=== PATIENT | male | born 1980 | race Caucasian/White ===

== ENCOUNTER 2020-06-23 01:57 | Inpatient (IN) | payer MEDICAID ==
[~2020-06-23] VITALS: Ht 182.9 cm; Wt 93.0 kg
[2020-06-23] VITALS (7 sets, daily range): BP systolic 121–143; BP diastolic 76–85
[2020-06-23] MEDS ORDERED: Vancomycin 1 GM in NS 275 ML IVPB ONE (02:15)
[2020-06-23] MEDS ORDERED: Morphine Sulfate 4mg/ml Inj (IV USE ONLY) IVP ONE (02:15)
--- NOTE | 2020-06-23 02:16 | Emergency Room Report ---
History of Present Illness General Chief Complaint: General Complaint Source: Patient Present Illness HPI 40-year-old male, homeless, here for evaluation for skin infections. Patient says that he frequently gets skin infections and admits to using methamphetamine. However over the past several days he has been experiencing worsening pain and drainage and redness of the skin around these areas of infection. The worst of the infection are on his chest and on his left hand. He is also been experiencing worsening pain and swelling of his left hand. Says "I feel sick" which he describes as generalized malaise. Denies fevers, chills, shortness of breath, palpitations, back pain, abdominal pain, nausea, vomiting, dysuria. Said he had 1 episode of diarrhea today. Denies IV drug use. 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 Past Medical History: No Stated History Review of Systems All Other Systems: negative except mentioned in HPI Physical Exam Vital Signs Date Time Temp Pulse Resp B/P (MAP) Pulse Ox O2 Delivery O2 Flow Rate FiO2 06/23/20 01:53 97.9 101 18 126/81 (96) 99 Room Air Sp02 EP Interpretation: reviewed, normal General Appearance: no apparent distress, GCS 15, non-toxic, other - Disheveled, foul-smelling Head: normocephalic, atraumatic Eyes: bilateral eye normal inspection, bilateral eye PERRL ENT: hearing grossly normal, normal pharynx, no angioedema, normal voice Neck: full range of motion, supple/symm/no masses Respiratory: chest non-tender, lungs clear, normal breath sounds, speaking full sentences Cardiovascular #1: regular rate, rhythm, no edema Cardiovascular #2: 2+ carotid (R), 2+ carotid (L), 2+ radial (R), 2+ radial (L), 2+ dorsalis pedis (R), 2+ dorsalis pedis (L) Gastrointestinal: normal bowel sounds, non tender, soft, non-distended, no guarding, no rebound Rectal: deferred Genitourinary: normal inspection, no CVA tenderness Musculoskeletal: back normal, normal range of motion, gait/station normal, other - Diffuse swelling of the left hand on the extensor surface of the left palm Neurologic: alert, motor strength/tone normal, oriented x3, sensory intact, responsive, speech normal Psychiatric: judgement/insight normal, memory normal, mood/affect normal, no suicidal/homicidal ideation Skin: other - Multiple open lesions of the extensor surface of the left hand and a very large 3 cm open sore on the right upper chest with approximately 4 cm of extensive warm painful erythema extending from the wound. Lymphatic: no adenopathy Medical Decision Making Diagnostic Impression: Primary Impression: Sepsis Additional Impressions: Cellulitis Drug abuse Homeless ER Course Laboratory Tests Test 06/23/20 02:20 White Blood Count 17.8 K/UL (4.8-10.8) H Red Blood Count 4.86 M/UL (4.70-6.10) Hemoglobin 15.8 G/DL (14.2-18.0) Hematocrit 44.9 % (42.0-52.0) Mean Corpuscular Volume 93 FL (80-99) Mean Corpuscular Hemoglobin 32.5 PG (27.0-31.0) H Mean Corpuscular Hemoglobin Concent 35.1 G/DL (32.0-36.0) Red Cell Distribution Width 12.4 % (11.6-14.8) Platelet Count 315 K/UL (150-450) Mean Platelet Volume 8.0 FL (6.5-10.1) Neutrophils (%) (Auto) 80.3 % (45.0-75.0) H Lymphocytes (%) (Auto) 10.2 % (20.0-45.0) L Monocytes (%) (Auto) 7.4 % (1.0-10.0) Eosinophils (%) (Auto) 1.5 % (0.0-3.0) Basophils (%) (Auto) 0.6 % (0.0-2.0) Sodium Level 133 MMOL/L (136-145) L Potassium Level 3.7 MMOL/L (3.5-5.1) Chloride Level 99 MMOL/L (98-107) Carbon Dioxide Level 27 MMOL/L (21-32) Anion Gap 7 mmol/L (5-15) Blood Urea Nitrogen 10 mg/dL (7-18) Creatinine 0.9 MG/DL (0.55-1.30) Estimated Glomerular Filtration Rate > 60 mL/min (>60) Glucose Level 117 MG/DL (74-106) H Lactic Acid Level 1.40 mmol/L (0.4-2.0) Calcium Level 8.5 MG/DL (8.5-10.1) Magnesium Level 2.0 MG/DL (1.8-2.4) Total Bilirubin 0.2 MG/DL (0.2-1.0) Aspartate Amino Transferase (AST) 17 U/L (15-37) Alanine Aminotransferase (ALT) 30 U/L (12-78) Alkaline Phosphatase 126 U/L (46-116) H Creatine Kinase MB 3.7 NG/ML (0.0-3.6) H Total Protein 7.4 G/DL (6.4-8.2) Albumin 3.5 G/DL (3.4-5.0) Globulin 3.9 g/dL Albumin/Globulin Ratio 0.9 (1.0-2.7) L Salicylates Level 2.5 ug/mL (2.8-20) L Acetaminophen Level < 2 MCG/ML (10-30) L Serum Alcohol < 3 mg/dL Chest x-ray: No infiltrate/effusion. Mediastinum within normal limits. No consolidation X-ray left hand: Soft tissue edema. No acute bony abnormalities. No osteomyelitis. No fracture or dislocation 40-year-old male, homeless, history of drug abuse, here with open skin lesions and cellulitis. Patient has cellulitis on physical examination worse in his r ight upper chest and left hand. He also had swelling diffusely of his left hand without any involvement of the digits. No worry at this time of flexor tenosynovitis. Patient normal range of motion of his fingers and his symptoms seem to be localized to the extensor surface of the left palm. X-ray was unremarkable. No evidence of cellulitis. Chest x-ray normal. CBC showed a l eukocytosis of 18,000. Patient was also tachycardic on arrival to the emergency department with heart rate of 101. He was given 1 L of IV normal saline with resolution of his tachycardia. Lactate negative. Patient was given vancomycin in the emergency department. Admitted to [facility]. Last Vital Signs Date Time Temp Pulse Resp B/P (MAP) Pulse Ox O2 Delivery O2 Flow Rate FiO2 06/23/20 01:53 97.9 101 18 126/81 (96) 99 Room Air Armen Espinosa M.D. Jun 23, 2020 02:16
[2020-06-23] MEDS ORDERED: HYDROmorphone 1mg/ml Carpuject ONE (02:38)
[2020-06-23 02:42] LABS: BASOPHILS % (AUTO) 0.6 % (0.0-2.0); EOSINOPHILS % (AUTO) 1.5 % (0.0-3.0); HEMATOCRIT 44.9 % (42.0-52.0); HEMOGLOBIN 15.8 G/DL (14.2-18.0); LYMPHOCYTES % (AUTO) 10.2 % (20.0-45.0); MEAN CORPUSCULAR VOLUME 93 FL (80-99); MONOCYTES % (AUTO) 7.4 % (1.0-10.0); NEUTROPHILS % (AUTO) 80.3 % (45.0-75.0); PLATELET COUNT 315 K/UL (150-450); RED BLOOD COUNT 4.86 M/UL (4.70-6.10); RED CELL DISTRIBUTION WIDTH 12.4 % (11.6-14.8); WHITE BLOOD COUNT 17.8 K/UL (4.8-10.8)
[2020-06-23] MEDS ORDERED: HYDROmorphone 1mg/ml Carpuject IVP ONE ×2 (02:45→04:15)
[2020-06-23 02:53] LABS: ANION GAP 7 mmol/L (5-15); BLOOD UREA NITROGEN 10 mg/dL (7-18); CALCIUM 8.5 MG/DL (8.5-10.1); CARBON DIOXIDE 27 MMOL/L (21-32); CHLORIDE 99 MMOL/L (98-107); CREATININE 0.9 MG/DL (0.55-1.30); POTASSIUM 3.7 MMOL/L (3.5-5.1); SODIUM 133 MMOL/L (136-145)
[2020-06-23 03:06] LABS: ALANINE AMINOTRANSFERASE 30 U/L (12-78); ALBUMIN 3.5 G/DL (3.4-5.0); ALBUMIN/GLOBULIN RATIO 0.9 (1.0-2.7); ALKALINE PHOSPHATASE 126 U/L (46-116); ASPARTATE AMINO TRANSFERASE 17 U/L (15-37); BILIRUBIN,TOTAL 0.2 MG/DL (0.2-1.0); CKMB 3.7 NG/ML (0.0-3.6)
--- NOTE | 2020-06-23 03:42 | Diagnostic Imaging Report ---
EXAM: XR Chest, 1 View CLINICAL HISTORY: COUGH TECHNIQUE: Frontal view of the chest. COMPARISON: No relevant prior studies available. FINDINGS: Lungs: Unremarkable. No consolidation. Pleural space: Unremarkable. No pneumothorax. Heart: Unremarkable. No cardiomegaly. Mediastinum: Unremarkable. Bones/joints: Unremarkable. IMPRESSION: No radiographic evidence of acute cardiopulmonary disease.
--- NOTE | 2020-06-23 03:45 | Diagnostic Imaging Report ---
EXAM: XR Left Hand Complete, 3 or More Views CLINICAL HISTORY: PAIN TECHNIQUE: Frontal, lateral and oblique views of the left hand. COMPARISON: No relevant prior studies available. FINDINGS: Bones/joints: No acute fracture. No dislocation. Soft tissues: There is soft tissue edema. No radiopaque foreign body. IMPRESSION: 1. No acute fracture. 2. Soft tissue edema.
[2020-06-23] MEDS: Vancomycin 1.25gm/250ml Premix IVPB SCH ×2 (08:23→16:32)
[2020-06-23] MEDS: Heparin 5000 units/ml inj SUBQ SCH ×2 (08:30→21:12)
--- NOTE | 2020-06-23 08:59 | History and Physical Report ---
DATE OF ADMISSION: 06/23/2020 CHIEF COMPLAINT: Neck abscess. HISTORY OF PRESENT ILLNESS: This is a 40-year-old male with no past medical history presented with complaints of two weeks of a small abscess on the upper sternum area. He denies any fevers or chills. No shortness of breath but his infection worsened. He is apparently homeless, has been unable to get any medical care until now. PAST MEDICAL HISTORY: None. PAST SURGICAL HISTORY: None. CURRENT MEDICATIONS: None. FAMILY HISTORY: None. SOCIAL HISTORY: The patient denies any tobacco, ethanol, or drugs. REVIEW OF SYSTEMS: Unremarkable. PHYSICAL EXAMINATION: VITAL SIGNS: Temperature 98, pulse 89, respirations 18, and blood pressure 143/104. There is a 5 cm area of induration and redness on the upper sternum area. LABORATORY DATA: White count was 17,000. ASSESSMENT: This is a 40-year-old male admitted with complaints of cellulitis versus an abscess on the upper sternum. PLAN: CT scan of the neck/chest, IV antibiotics, followup cultures. The patient may need an I and D. Dino Rivero M.D. DR: Joel JOB#: [id number] CC:
[2020-06-23] MEDS: HYDROcodone/Acetamin 10/325 tab ORAL PRN (21:13)
[2020-06-24] VITALS: BP 132/79
[2020-06-24] MEDS: Vancomycin 1.25gm/250ml Premix IVPB SCH ×4 (00:26→23:01)
[2020-06-24 04:00] VITALS: BP 128/74
[2020-06-24 08:00] VITALS: BP 144/78
[2020-06-24] MEDS: Heparin 5000 units/ml inj SUBQ SCH ×2 (08:46→20:59)
--- NOTE | 2020-06-24 11:34 | General Progress Note ---
Subjective ROS Limited/Unobtainable: No Constitutional: Reports: no symptoms HEENT: Reports: no symptoms Cardiovascular: Reports: no symptoms Respiratory: Reports: no symptoms Gastrointestinal/Abdominal: Reports: no symptoms Genitourinary: Reports: no symptoms Neurologic/Psychiatric: Reports: no symptoms Endocrine: Reports: no symptoms Hematologic/Lymphatic: Reports: no symptoms Allergies: Coded Allergies: No Known Allergies (Unverified , 06/23/20) All Systems: reviewed and negative except above Subjective no new complaints. on iv abx. ct not done yet Objective Last 24 Hour Vital Signs Date Time Temp Pulse Resp B/P (MAP) Pulse Ox O2 Delivery O2 Flow Rate FiO2 06/24/20 09:00 Room Air 06/24/20 08:00 98.1 90 18 144/78 (100) 99 06/24/20 04:00 97.8 79 18 128/74 (92) 98 06/24/20 00:00 97.6 74 19 132/79 (96) 97 06/23/20 21:00 Room Air 06/23/20 20:00 98.4 76 17 124/80 (95) 96 06/23/20 16:00 98.1 79 17 127/83 (98) 98 06/23/20 12:00 97.3 76 18 121/79 (93) 98 Intake and Output 06/23/20 06/24/20 19:00 07:00 Intake Total 600 ml 740 ml Balance 600 ml 740 ml Intake Oral 740 ml Other 600 ml # Voids 3 Laboratory Tests 06/23/20 22:55: Vancomycin Level Trough 10.0 Height (Feet): 6 Height (Inches): 0.00 Weight (Pounds): 205 Objective 4cm induration on upper sternum Assessment/Plan Problem List: (1) Cellulitis ICD Codes: L03.90 - Cellulitis, unspecified SNOMED: 403629012 Status: stable Assessment/Plan: ct pending iv abx wound care pain rx Dino Rivero MD Jun 24, 2020 11:34
--- NOTE | 2020-06-24 11:40 | Diagnostic Imaging Report ---
Indication: Neck swelling and pain Technique: CT of the neck was performed utilizing automated exposure control without intravenous contrast material. Axial and coronal images were generated. CT dose: Total DLP 546.6 mGycm; CTDI vol 14.6 mGy Comparison: None available Findings: Skull base: There is a small left mastoid effusion. Small left maxillary sinus mucus retention cyst. Airways: Widely patent. Suprahyoid neck: There are calcifications in the palatine tonsils bilaterally, which are prominent. Infrahyoid neck: Thyroid gland is unremarkable. Upper chest: Lung apices demonstrate mild to moderate emphysema. There is mild diffuse bronchial thickening. Bones and soft tissues: There are multilevel discogenic degenerative changes of the visualized spine. In the right anterior supraclavicular soft tissues, there is moderate focal soft tissue swelling with moderate fat stranding extending to the soft tissues overlying the right sternoclavicular joint. No evidence of osseous erosion. Impression: 1. Inflammatory changes of the right supraclavicular and parasternal soft tissues suggestive of cellulitis. No drainable fluid collection identified, though evaluation is limited in the absence of intravenous contrast. 2. Prominent, calcified palatine tonsils presumably secondary to prior infection/inflammation. 3. Mild to moderate emphysema, incompletely imaged. 4. Small left mastoid effusion. The CT scanner at [facility] is accredited by the [employer] [place] [employer] and the scans are performed using protocols designed to limit radiation exposure to as low as reasonably achievable to attain images of sufficient resolution adequate for diagnostic evaluation.
[2020-06-24 12:00] VITALS: BP 138/73
[2020-06-24 16:00] VITALS: BP 131/83
[2020-06-24] MEDS: HYDROcodone/Acetamin 10/325 tab ORAL PRN (16:59)
[2020-06-24 19:46] VITALS: BP 112/67
[2020-06-25 04:09] VITALS: BP 121/70
[2020-06-25 08:00] VITALS: BP 122/67
[2020-06-25] MEDS: Vancomycin 1.25gm/250ml Premix IVPB SCH ×3 (08:20→23:02)
[2020-06-25] MEDS: Heparin 5000 units/ml inj SUBQ SCH ×2 (08:21→21:07)
[2020-06-25] MEDS: HYDROcodone/Acetamin 10/325 tab ORAL PRN ×2 (08:37→12:46)
--- NOTE | 2020-06-25 09:51 | General Progress Note ---
Subjective ROS Limited/Unobtainable: No Constitutional: Reports: no symptoms HEENT: Reports: no symptoms Cardiovascular: Reports: no symptoms Respiratory: Reports: no symptoms Gastrointestinal/Abdominal: Reports: no symptoms Genitourinary: Reports: no symptoms Neurologic/Psychiatric: Reports: no symptoms Endocrine: Reports: no symptoms Hematologic/Lymphatic: Reports: no symptoms Allergies: Coded Allergies: No Known Allergies (Unverified , 06/23/20) All Systems: reviewed and negative except above Subjective no new complaints. on iv abx. ct shows cellulitis. no abscess Objective Last 24 Hour Vital Signs Date Time Temp Pulse Resp B/P (MAP) Pulse Ox O2 Delivery O2 Flow Rate FiO2 06/25/20 08:00 98.0 75 16 122/67 (85) 20 06/25/20 04:09 98.0 88 16 121/70 (87) 96 06/24/20 20:01 Room Air 06/24/20 19:46 97.6 90 18 112/67 (82) 94 06/24/20 16:00 97.1 87 18 131/83 (99) 96 06/24/20 12:00 98.5 89 17 138/73 (94) 98 Intake and Output 06/24/20 06/25/20 19:00 07:00 Intake Total 1250 ml 770.000 ml Balance 1250 ml 770.000 ml Intake Oral 650 ml 520 ml IV Total 250.000 ml Other 600 ml # Voids 3 3 Height (Feet): 6 Height (Inches): 0.00 Weight (Pounds): 205 Objective 4cm induration on upper sternum Assessment/Plan Problem List: (1) Cellulitis ICD Codes: L03.90 - Cellulitis, unspecified SNOMED: 005572491 Status: stable Assessment/Plan: follow up cultures warm compress iv abx wound care pain rx Dino Rivero MD Jun 25, 2020 09:51
[2020-06-25 12:00] VITALS: BP 110/56
--- NOTE | 2020-06-25 15:29 | Consultation ---
History of Present Illness General Date patient seen: Jun 25, 2020 Reason for Hospitalization: General Complaint Present Illness HPI This is a 40-year-old homeless male who presented to [facility] for evaluation of worsening skin infections. Patient says that he frequently gets skin infections and admits to using methamphetamine. However over the past several days he has been experiencing worsening pain and drainage and redness of the skin around these areas of infection. The worst of the infection are on his chest and on his left hand. He is also been experiencing worsening pain and swelling of his left hand. Says "I feel sick" which he describes as generalized malaise. Denies fevers, chills, shortness of breath, palpitations, back pain, abdominal pain, nausea, vomiting, dysuria. Said he had 1 episode of diarrhea today. Denies IV drug use. surgery called to evaluate and assist with care. Allergies: Coded Allergies: No Known Allergies (Unverified , 06/23/20) COVID-19 Screening Contact w/high risk pt: No Experienced COVID-19 symptoms?: No Medication History No Active Prescriptions or Reported Meds Patient History History Provided By: Patient, Medical Record, PMD Healthcare decision maker Resuscitation status Advanced Directive on File Past Medical/Surgical History Past Medical/Surgical History: (1) Drug abuse (2) Sepsis (3) Homeless (4) Cellulitis Review of Systems Review of Symptoms General ROS: no weight loss or fever Psychological ROS: no depression or mood changes, no memory loss Ophthalmic ROS: no visual changes or eye irritation ENT ROS: no nasal congestion, hearing loss, dizziness Allergy and Immunology ROS: no allergic symptoms or urticaria Hematological and Lymphatic ROS: no swollen glands, unusual bleeding or bruising Endocrine ROS: no polyuria, polydipsia, weight changes, temperature intolerance Respiratory ROS: no cough, shortness of breath, or wheezing Cardiovascular ROS: no chest pain or dyspnea on exertion Gastrointestinal ROS: denies abdominal pain, bright red blood in stool. Musculoskeletal ROS: no myalgias or arthralgias Neurological ROS: no TIA or stroke symptoms Dermatological ROS: no new or changing skin lesions, rashes or pruritis Physical Exam Physical Exam General appearance: alert, cooperative, no distress, appears stated age Head: Normocephalic, without obvious abnormality, atraumatic Eyes: conjunctivae/corneas clear. PERRL, EOM's intact. Fundi benign Throat: Lips, mucosa, and tongue normal. Teeth and gums normal Neck: supple, symmetrical, trachea midline, no adenopathy, thyroid: not enlarged, symmetric, no tenderness/mass/nodules, no carotid bruit and no JVD Lungs: clear to auscultation bilaterally Heart: regular rate and rhythm, S1, S2 normal, no murmur, click, rub or gallop Abdomen: soft, non-tender. Bowel sounds normal. No masses, no organomegaly Extremities: extremities normal, atraumatic, no cyanosis or edema Pulses: 2+ and symmetric Skin: Skin see below Neurologic: Grossly normal Last 24 Hour Vital Signs Date Time Temp Pulse Resp B/P (MAP) Pulse Ox O2 Delivery O2 Flow Rate FiO2 06/25/20 12:00 98.0 77 16 110/56 (74) 22 06/25/20 09:00 Room Air 06/25/20 08:00 98.0 75 16 122/67 (85) 20 06/25/20 04:09 98.0 88 16 121/70 (87) 96 06/24/20 20:01 Room Air 06/24/20 19:46 97.6 90 18 112/67 (82) 94 06/24/20 16:00 97.1 87 18 131/83 (99) 96 Intake and Output 06/24/20 06/25/20 19:00 07:00 Intake Total 1250 ml 770.000 ml Balance 1250 ml 770.000 ml Intake Oral 650 ml 520 ml IV Total 250.000 ml Other 600 ml # Voids 3 3 Height (Feet): 6 Height (Inches): 0.00 Weight (Pounds): 205 Medications Current Medications Medications (Trade) Dose Ordered Sig/Gris Route PRN Reason Start Time Stop Time Status Last Admin Dose Admin Acetaminophen (Tylenol) 650 mg Q4H PRN ORAL Mild Pain 1-3/fever 06/23/20 05:45 07/23/20 05:44 Acetaminophen/ Hydrocodone Bitart ([place] 10/325) 1 tab Q4H PRN ORAL For Pain 4-10 06/23/20 05:45 06/30/20 05:44 06/25/20 12:46 Heparin Sodium (Porcine) (Heparin 5000 units/ml) 5,000 units EVERY 12 HOURS SUBQ 06/23/20 09:00 08/07/20 08:59 06/25/20 08:21 Vancomycin HCl 250 ml @ 166.667 mls/hr Q8H IVPB 06/23/20 08:00 06/28/20 07:59 06/25/20 08:20 Vancomycin HCl ([facility] pharmacy to dose) 1 ea DAILY PRN MISC Per rx protocol 06/23/20 05:45 07/23/20 05:44 Assessment/Plan Problem List: (1) Cellulitis Assessment & Plan: Patient present on admission with multiple skin concerns. He states they have only been there for 2 or 3 days but after further conversation and probing he identifies them as potentially being there for over 2 weeks. He has a wound on his upper sternum identified as a 3 cm x 2 cm x 0.2 cm brown scab with slough 100% 0 granulation tissue red edges are raised. On minimal evaluation with gauze dressing nonexcisional debridement the majority of the sloth was excised.complication. The remaining wound bed was identified to be a hard area of eschar formed as the dermis. Wound was washed dressings were applied. Apply Betadine swab followed by gauze or Optifoam daily. Okay to shower. Left hand wound/abscess 2.0x2.5x0.2 brown scab /slough small amount of drainage noted and swelling Thera Honey and Optifoam applied.Patient states hand is very painful.Left forearm wound/scab2.0x1.8x0.2 no drainage noted Thera Honey and Optifoam applied. no fluid collection or abscess identified phlegmon mainly wounds washed dressings applied d/c planning outpatient wound care thank you oral abx thank you ICD Codes: L03.90 - Cellulitis, unspecified SNOMED: 916714196 (2) Drug abuse ICD Codes: F19.10 - Other psychoactive substance abuse, uncomplicated SNOMED: 06170960 (3) Sepsis ICD Codes: A41.9 - Sepsis, unspecified organism SNOMED: 33415440 (4) Homeless ICD Codes: Z59.0 - Homelessness SNOMED: [id number] Arvind Pedro Jun 25, 2020 15:29
[2020-06-25 16:00] VITALS: BP 96/50
[2020-06-25 20:18] VITALS: BP 112/62
[2020-06-26 04:07] VITALS: BP 116/68
--- NOTE | 2020-06-26 07:16 | General Progress Note ---
Subjective ROS Limited/Unobtainable: Yes Constitutional: Reports: malaise, weakness HEENT: Reports: no symptoms Cardiovascular: Reports: no symptoms Respiratory: Reports: no symptoms Gastrointestinal/Abdominal: Reports: no symptoms Genitourinary: Reports: no symptoms Neurologic/Psychiatric: Reports: no symptoms Endocrine: Reports: no symptoms Hematologic/Lymphatic: Reports: no symptoms Allergies: Coded Allergies: No Known Allergies (Unverified , 06/23/20) All Systems: reviewed and negative except above Subjective no new complaints. on iv abx. ct shows cellulitis. no abscess surgery noted. Objective Last 24 Hour Vital Signs Date Time Temp Pulse Resp B/P (MAP) Pulse Ox O2 Delivery O2 Flow Rate FiO2 06/26/20 04:07 97.8 78 16 116/68 (84) 92 06/25/20 21:00 Room Air 06/25/20 20:18 96.1 85 18 112/62 (79) 97 06/25/20 16:00 98.0 69 16 96/50 (65) 21 06/25/20 12:00 98.0 77 16 110/56 (74) 22 06/25/20 09:00 Room Air 06/25/20 08:00 98.0 75 16 122/67 (85) 20 Intake and Output 06/25/20 06/26/20 19:00 07:00 Intake Total 750 ml 990.000 ml Balance 750 ml 990.000 ml Intake Oral 750 ml 740 ml IV Total 250.000 ml # Voids 2 3 Height (Feet): 6 Height (Inches): 0.00 Weight (Pounds): 205 Objective 4cm induration on upper sternum Assessment/Plan Problem List: (1) Cellulitis ICD Codes: L03.90 - Cellulitis, unspecified SNOMED: [id number] Status: stable Assessment/Plan: follow up cultures warm compress iv abx wound care pain rx dc planning to be determined once cultures back Dino Rivero MD Jun 26, 2020 07:16
[2020-06-26 07:28] LABS: BASOPHILS % (AUTO) 1.5 % (0.0-2.0); EOSINOPHILS % (AUTO) 3.7 % (0.0-3.0); HEMATOCRIT 51.7 % (42.0-52.0); HEMOGLOBIN 16.8 G/DL (14.2-18.0); LYMPHOCYTES % (AUTO) 23.4 % (20.0-45.0); MEAN CORPUSCULAR VOLUME 94 FL (80-99); MONOCYTES % (AUTO) 7.6 % (1.0-10.0); NEUTROPHILS % (AUTO) 63.7 % (45.0-75.0); PLATELET COUNT 338 K/UL (150-450); RED CELL DISTRIBUTION WIDTH 12.6 % (11.6-14.8); WHITE BLOOD COUNT 8.2 K/UL (4.8-10.8)
[2020-06-26 07:50] LABS: ALANINE AMINOTRANSFERASE 50 U/L (12-78); ALBUMIN 3.3 G/DL (3.4-5.0); ALBUMIN/GLOBULIN RATIO 0.7 (1.0-2.7); ALKALINE PHOSPHATASE 119 U/L (46-116); ANION GAP 7 mmol/L (5-15); ASPARTATE AMINO TRANSFERASE 23 U/L (15-37); BILIRUBIN,TOTAL 0.3 MG/DL (0.2-1.0); BLOOD UREA NITROGEN 13 mg/dL (7-18); CALCIUM 8.8 MG/DL (8.5-10.1); CARBON DIOXIDE 28 MMOL/L (21-32); CHLORIDE 102 MMOL/L (98-107); CREATININE 0.9 MG/DL (0.55-1.30); POTASSIUM 4.1 MMOL/L (3.5-5.1); SODIUM 137 MMOL/L (136-145)
[2020-06-26 08:00] VITALS: BP 130/74
[2020-06-26] MEDS: Vancomycin 1.25gm/250ml Premix IVPB SCH ×3 (08:29→22:58)
[2020-06-26] MEDS: Heparin 5000 units/ml inj SUBQ SCH ×2 (08:30→20:46)
[2020-06-26 12:00] VITALS: BP 114/63
[2020-06-26] MEDS: HYDROcodone/Acetamin 10/325 tab ORAL PRN (12:33)
--- NOTE | 2020-06-26 13:41 | Surgery Progress Note ---
Surgery Progress Note Subjective Symptoms: improved Objective Last 24 Hour Vital Signs Date Time Temp Pulse Resp B/P (MAP) Pulse Ox O2 Delivery O2 Flow Rate FiO2 06/26/20 12:00 98.1 70 18 114/63 (80) 97 06/26/20 09:00 Room Air 06/26/20 08:00 98.1 73 18 130/74 (92) 97 06/26/20 04:07 97.8 78 16 116/68 (84) 92 06/25/20 21:00 Room Air 06/25/20 20:18 96.1 85 18 112/62 (79) 97 06/25/20 16:00 98.0 69 16 96/50 (65) 21 I&O Intake and Output 06/25/20 06/26/20 19:00 07:00 Intake Total 750 ml 990.000 ml Balance 750 ml 990.000 ml Intake Oral 750 ml 740 ml IV Total 250.000 ml # Voids 2 3 Dressing: saturated Wound: clean Cardiovascular: RSR Respiratory: clear Abdomen: soft, non-tender, present bowel sounds Extremities: no tenderness, no cyanosis Laboratory Tests Test 06/26/20 06:39 White Blood Count 8.2 K/UL (4.8-10.8) Red Blood Count 5.50 M/UL (4.70-6.10) Hemoglobin 16.8 G/DL (14.2-18.0) Hematocrit 51.7 % (42.0-52.0) Mean Corpuscular Volume 94 FL (80-99) Mean Corpuscular Hemoglobin 30.6 PG (27.0-31.0) Mean Corpuscular Hemoglobin Concent 32.6 G/DL (32.0-36.0) Red Cell Distribution Width 12.6 % (11.6-14.8) Platelet Count 338 K/UL (150-450) Mean Platelet Volume 7.2 FL (6.5-10.1) Neutrophils (%) (Auto) 63.7 % (45.0-75.0) Lymphocytes (%) (Auto) 23.4 % (20.0-45.0) Monocytes (%) (Auto) 7.6 % (1.0-10.0) Eosinophils (%) (Auto) 3.7 % (0.0-3.0) H Basophils (%) (Auto) 1.5 % (0.0-2.0) Sodium Level 137 MMOL/L (136-145) Potassium Level 4.1 MMOL/L (3.5-5.1) Chloride Level 102 MMOL/L (98-107) Carbon Dioxide Level 28 MMOL/L (21-32) Anion Gap 7 mmol/L (5-15) Blood Urea Nitrogen 13 mg/dL (7-18) Creatinine 0.9 MG/DL (0.55-1.30) Estimat Glomerular Filtration Rate > 60 mL/min (>60) Glucose Level 90 MG/DL (74-106) Calcium Level 8.8 MG/DL (8.5-10.1) Total Bilirubin 0.3 MG/DL (0.2-1.0) Aspartate Amino Transf (AST/SGOT) 23 U/L (15-37) Alanine Aminotransferase (ALT/SGPT) 50 U/L (12-78) Alkaline Phosphatase 119 U/L (46-116) H Total Protein 7.8 G/DL (6.4-8.2) Albumin 3.3 G/DL (3.4-5.0) L Globulin 4.5 g/dL Albumin/Globulin Ratio 0.7 (1.0-2.7) L Plan Problems: (1) Cellulitis Assessment & Plan: Patient present on admission with multiple skin concerns. He states they have only been there for 2 or 3 days but after further conversation and probing he identifies them as potentially being there for over 2 weeks. He has a wound on his upper sternum identified as a 3 cm x 2 cm x 0.2 cm brown scab with slough 100% 0 granulation tissue red edges are raised. On minimal evaluation with gauze dressing nonexcisional debridement the majority of the sloth was excised.complication. The remaining wound bed was identified to be a hard area of eschar formed as the dermis. Wound was washed dressings were applied. Apply Betadine swab followed by gauze or Optifoam daily. Okay to shower. Left hand wound/abscess 2.0x2.5x0.2 brown scab /slough small amount of drainage noted and swelling Thera Honey and Optifoam applied.Patient states hand is very painful.Left forearm wound/scab2.0x1.8x0.2 no drainage noted Thera Honey and Optifoam applied. no fluid collection or abscess identified phlegmon mainly wounds washed dressings applied d/c planning outpatient wound care thank you oral abx thank you Skull base: There is a small left mastoid effusion. Small left maxillary sinus mucus retention cyst. Airways: Widely patent. Suprahyoid neck: There are calcifications in the palatine tonsils bilaterally, which are prominent. Infrahyoid neck: Thyroid gland is unremarkable. Upper chest: Lung apices demonstrate mild to moderate emphysema. There is mild diffuse bronchial thickening. Bones and soft tissues: There are multilevel discogenic degenerative changes of the visualized spine. In the right anterior supraclavicular soft tissues, there is moderate focal soft tissue swelling with moderate fat stranding extending to the soft tissues overlying the right sternoclavicular joint. No evidence of osseous erosion. Impression: 1. Inflammatory changes of the right supraclavicular and parasternal soft tissues suggestive of cellulitis. No drainable fluid collection identified, though evaluation is limited in the absence of intravenous contrast. 2. Prominent, calcified palatine tonsils presumably secondary to prior infection/inflammation. 3. Mild to moderate emphysema, incompletely imaged. 4. Small left mastoid effusion. (2) Drug abuse (3) Sepsis (4) Homeless Arvind Pedro Jun 26, 2020 13:41
[2020-06-26 16:00] VITALS: BP 117/62
[2020-06-26 19:49] VITALS: BP 139/72
[2020-06-27] MEDS ORDERED: Bactrim-DS 1 tab ORAL SCH
[2020-06-27 04:00] VITALS: BP 122/68
[2020-06-27 07:50] VITALS: BP 121/51
[2020-06-27] MEDS: Vancomycin 1.25gm/250ml Premix IVPB SCH (08:17)
[2020-06-27] MEDS: Heparin 5000 units/ml inj SUBQ SCH (08:18)
[2020-06-27] MEDS: HYDROcodone/Acetamin 10/325 tab ORAL PRN (08:31)
[2020-06-27] MEDS ORDERED: NS 500ML ONE (08:59)
[2020-06-27] MEDS ORDERED: BACTRIM DS TAB1 EAC1 ORAL (11:52)
--- NOTE | 2020-06-27 13:01 | Surgery Progress Note ---
Surgery Progress Note Subjective Additional Comments seemed nervous this am states hasnt used drugs in a few days and does nt want to late entry. has since eloped Objective Last 24 Hour Vital Signs Date Time Temp Pulse Resp B/P (MAP) Pulse Ox O2 Delivery O2 Flow Rate FiO2 06/27/20 09:00 Room Air 06/27/20 07:50 96.4 77 18 121/51 (74) 100 06/27/20 04:00 97.8 76 16 122/68 (86) 94 06/26/20 20:28 Room Air 06/26/20 19:49 98.1 80 16 139/72 (94) 97 06/26/20 16:00 97.6 76 18 117/62 (80) 98 I&O Intake and Output 06/26/20 06/27/20 19:00 07:00 Intake Total 1506.668 ml 1050.000 ml Balance 1506.668 ml 1050.000 ml Intake Oral 840 ml 800 ml IV Total 666.668 ml 250.000 ml # Voids 3 4 Dressing: dry Cardiovascular: RSR Respiratory: clear Abdomen: soft, non-tender, present bowel sounds Extremities: no edema, no tenderness, no cyanosis Plan Problems: (1) Cellulitis Assessment & Plan: Patient present on admission with multiple skin concerns. He states they have only been there for 2 or 3 days but after further conversation and probing he identifies them as potentially being there for over 2 weeks. He has a wound on his upper sternum identified as a 3 cm x 2 cm x 0.2 cm brown scab with slough 100% 0 granulation tissue red edges are raised. On minimal evaluation with gauze dressing nonexcisional debridement the majority of the sloth was excised.complication. The remaining wound bed was identified to be a hard area of eschar formed as the dermis. Wound was washed dressings were applied. Apply Betadine swab followed by gauze or Optifoam daily. Okay to shower. Left hand wound/abscess 2.0x2.5x0.2 brown scab /slough small amount of drainage noted and swelling Thera Honey and Optifoam applied.Patient states hand is very painful.Left forearm wound/scab2.0x1.8x0.2 no drainage noted Thera Honey and Optifoam applied. no fluid collection or abscess identified phlegmon mainly wounds washed dressings applied d/c planning outpatient wound care thank you oral abx thank you Skull base: There is a small left mastoid effusion. Small left maxillary sinus mucus retention cyst. Airways: Widely patent. Suprahyoid neck: There are calcifications in the palatine tonsils bilaterally, which are prominent. Infrahyoid neck: Thyroid gland is unremarkable. Upper chest: Lung apices demonstrate mild to moderate emphysema. There is mild diffuse bronchial thickening. Bones and soft tissues: There are multilevel discogenic degenerative changes of the visualized spine. In the right anterior supraclavicular soft tissues, there is moderate focal soft tissue swelling with moderate fat stranding extending to the soft tissues overlying the right sternoclavicular joint. No evidence of osseous erosion. Impression: 1. Inflammatory changes of the right supraclavicular and parasternal soft tissues suggestive of cellulitis. No drainable fluid collection identified, though evaluation is limited in the absence of intravenous contrast. 2. Prominent, calcified palatine tonsils presumably secondary to prior infection/inflammation. 3. Mild to moderate emphysema, incompletely imaged. 4. Small left mastoid effusion. (2) Drug abuse (3) Sepsis (4) Homeless Arvind Pedro Jun 27, 2020 13:01
--- NOTE | 2020-06-27 20:11 | CDS Physician Query ---
Clarification is required for compliance, coding accuracy, and to reflect severity of illness for this patient Dear Dr. Dino Rivero M.D.. Date 06/27/2020 CDI/CDS; Gabriel Hendrix Exercise your independent professional judgment when responding to query. Questions asked do not imply particular answer is desired or expected. We greatly appreciate your clarification on this issue. Clinical Documentation States: 40-year-old male with no past medical history presented with complaints of two weeks of a small abscess on the upper sternum area. He denies any fevers or chills. [H&P Dino Rivero M.D. 06/23/20 ] ASSESSMENT:cellulitis versus an abscess on the upper sternum. Clinical Finding Show: Vitals (06/23): T98.8F, Pulse 101, RR 18. LAB (06/23) : Hemat; WBC 1748, Neut%80.3 Chem: Gluc 117, Lactic acid 1.6, Microbiology (06/25): Wound culture: FEW GRAM POSITIVE COCCI Medication: Vancomycin IV, Trimethoprim PO, Acetaminophen PO According to the clinical indications above, please indicate below the condition PHYSICIAN RESPONSE: [ x] Sepsis [ ] SIRS [ ] SIRS with organ dysfunction [ ] Septic Shock [ ] Not applicable [ ] Other: Present on Admission: [ x Yes [ ] No [ ] Clinically Undetermined Physician signature Date Please also document in your Progress Notes and/or Discharge Summary and indicate if the condition was present on admission. NICKOLAS
--- NOTE | 2020-07-01 13:47 | Discharge Summary ---
Discharge Summary Discharge Summary _ DATE OF ADMISSION: 06/23/2020 DATE OF DISCHARGE: 06/27/2020 Patient left AGAINST MEDICAL ADVICE REASON FOR ADMISSION: 50 years old male, homeless, with no significant past medical history, presented for evaluation of skin infection for 2 weeks. Patient admits to use of methamphetamine. Patient reported that he frequently gets skin infections. Over the past several days he had been experience worsening pain and drainage along redness on the skin around the areas of infection, including chest and left hand. He denied fever and chills. He denied chest pain or shortness of breath. No palpitations. No back pain or abdominal pain. No nausea, vomiting or dysuria. He reported one episode of diarrhea. Upon evaluation vital signs were stable. Laboratory work-up revealed leukocytosis WBC 17., stable hemoglobin , hematocrit and platelet count. Sodium 133. stable other electrolytes and renal parameters. Glucose 117. Lactic acid 1.4. Stable LFT. Serum alcohol less than 3 . Chest x-ray revealed no acute cardiopulmonary pathology. X-ray of the left hand revealed soft tissue edema , no acute bony abnormality , no evidence of osteomyelitis ,no fracture or dislocation. Patient received liter of fluid , started on empiric antibiotic and admitted to medical surgical floor for further management. [facility]ULT[facility] COURSE: Patient admitted to medical surgical floor. Patient undergone CT scan of the neck , which revealed inflammatory changes suggestive of cellulitis. No drainable fluid collection. Mild to moderate emphysema. Patient continued on broad-spectrum antibiotic blood culture were negative Rapid COVID-19 was negative. Wound culture revealed MRSA. Vancomycin continued. Leukocytosis resolved. Pain management was addressed as needed. Supportive care provided. Patient was counseled on abstinence from illicit street drugs. DVT prophylaxis provided. Surgeon followed. Wound care provided as per surgeon recommendation. No fluid collection or abscess were identified. Vancomycin changed to Bactrim. Plan was for discharge patient home with oral antibiotics and wound care. Patient decided to leave AGAINST MEDICAL ADVICE. The risks and consequences of signing AGAINST MEDICAL ADVICE were discussed with patient in detail. Patient verbalized understanding, nevertheless refused to sign AMA form and eloped on 06/27. FINAL DIAGNOSES: Sepsis Cellulitis Drug abuse Homeless I have been assigned to dictate discharge summary for this account. I was not involved in the patient's management. Cherelle Stubbs NP Jul 01, 2020 13:47
== END 2020-06-27 09:00 | disposition left against medical advice (07) | DRG 720 ==
LOC: EDBD 01:57 → EMR 02:24 → 4E 02:48 → EDBEDREQ 03:26
DX: A41.9 Sepsis, unspecified organism (principal); L03.313 Cellulitis of chest wall; L02.11 Cutaneous abscess of neck; L03.114 Cellulitis of left upper limb; Z59.0 Homelessness; E87.1 Hypo-osmolality and hyponatremia; J43.9 Emphysema, unspecified; F15.10 Other stimulant abuse, uncomplicated
CPT/HCPCS: 36415; 70490; 71045; 80053; 80202; 82553; 83605; 83735; 85025; 87040; 87070; 87081; 87181; 87205; 96365; 96375; 96376; 99285; G0480; J7030; U0002

== ENCOUNTER 2020-06-27 11:32 | Emergency (ER) | payer MEDICAID ==
[~2020-06-27] VITALS: Ht 185.4 cm; Wt 83.9 kg
[~2020-06-27 11:32] MED LIST: Bactrim-DS 1 tab ORAL SCH
[2020-06-27] MEDS ORDERED: BACTRIM DS TAB1 EAC1 ORAL (11:52)
--- NOTE | 2020-06-27 11:55 | Emergency Room Report ---
History of Present Illness General Chief Complaint: Medication Refill Source: Patient Present Illness HPI Disclaimer: Please note that this report is being documented using [employer] technology. This can lead to erroneous entry secondary to incorrect interpretation by the dictating instrument. HPI: 40-year-old male recently admitted for treatment of chest wall and left wrist cellulitis presents requesting antibiotics. Patient left AGAINST MEDICAL ADVICE earlier this morning. He was receiving IV vancomycin for treatment of staph infection. Abscesses were surgically incised and drained. Sensitivities not yet returned. Now states he needs antibiotics. He had left AMA to smoke a cigarette and states he does not want to go to the rehabilitation center that admitting team was supposedly arranging. Patient uses methamphetamines. Denies fever, chills, vomiting or other symptoms at this time. PMH: Substance abuse, cellulitis and abscess PSH: Abscess incision and drainage Allergies: Reviewed Social Hx: Substance abuse Allergies: Coded Allergies: No Known Allergies (Unverified , 06/23/20) COVID-19 Screening Contact w/high risk pt: No Experienced COVID-19 symptoms?: No COVID-19 Testing performed ASSISTANT IMPORT MANAGER: No Nursing Documentation-PMH Past Medical History: No Stated History Review of Systems All Other Systems: negative except mentioned in HPI Physical Exam Vital Signs Date Time Temp Pulse Resp B/P (MAP) Pulse Ox O2 Delivery O2 Flow Rate FiO2 06/27/20 11:37 98.2 98 20 143/76 (98) 96 Room Air General: Awake and alert, no acute distress HEENT: NC/AT. EOMI. Resp: Normal work of breathing Skin: Surgical bandages applied to chest wall and left leg stone clean dry and intact. No active purulent draining or bleeding from wounds. MSK: Normal tone and bulk. Moving all extremities. No obvious deformity. Neuro: Awake and alert. Mentating appropriately Medical Decision Making Homeless Attestation Patient is homelss. Patient has been medically screened and is stable for outpatient follow up Diagnostic Impression: Primary Impression: Encounter for medication refill ER Course 40-year-old male presents requesting antibiotics. Patient left AGAINST MEDICAL ADVICE while being treated for chest wall and left wrist staph infections. He had incision and drainage of the sites and was receiving vancomycin. Sensitivities are not yet resulted on the wound cultures. Patient no longer wants to be in the hospital does not want to go to the rehabilitation center after discharge. He is homeless. Will start on Bactrim. Encouraged to follow- up with outpatient wound care. Attempted to send to drug rehab facility however the patient declined. States he is going to go stay with his . Advised to return with new or worsening symptoms. Last Vital Signs Date Time Temp Pulse Resp B/P (MAP) Pulse Ox O2 Delivery O2 Flow Rate FiO2 06/27/20 11:37 98.2 98 20 143/76 (98) 96 Room Air Disposition: HOME, SELF-CARE Condition: Stable Scripts Trimethoprim/Sulfamethoxazole 160/800* (BACTRIM DS TABLET*) 1 Each Tablet 1 TAB ORAL Q12H for 7 Days, #14 TAB 0 Refills Prov: Fei Ernandez MD 06/27/20 Referrals: [facility] Emi Salguero Comp. [facility] - Peds ER - [facility] Intake Hotline - [facility] - [facility] Patient Instructions: Medicine Refill at the Emergency Department Additional Instructions: Please follow-up with your primary care doctor in the next 1 to 3 days to discuss this emergency department visit and for reevaluation. If you have any new or worsening symptoms please return to the emergency department for reevaluation. Please note that this report is being documented using [employer] technology. This can lead to erroneous entry secondary to incorrect interpretation by the dictating instrument. Fei Ernandez MD Jun 27, 2020 11:55
--- NOTE | 2020-06-27 12:20 | NUR ---
ED Nurse Note:pt. came for antibiotics to treat skin infection, seen by ER MD, supply of meds were provided by hospital [facility] due to pt. transient status
--- NOTE | 2020-06-27 12:25 | NUR ---
Homeless Discharge: Patient is being discharged from medical care. Awake, alert and oriented x3. After care instructions, including referral to community resources were given. Patient verbalized understanding of After care instructions; at this time patient doesn't requier equipment or placement, antibiotics were provided by hospital pharmacy Patient signed patient consent in the medical record for patient destination upon discharge. All medical devices and ID band were removed. Patient ambulated out with all personal belongings with steady gait.
[2020-06-27 12:39] VITALS: BP 143/76
== END 2020-06-27 12:15 | disposition home or self-care (01) ==
LOC: EMR 11:52
DX: Z76.0 Encounter for issue of repeat prescription (principal); F17.200 Nicotine dependence, unspecified, uncomplicated; F15.10 Other stimulant abuse, uncomplicated; Z59.0 Homelessness
CPT/HCPCS: 99282

== ENCOUNTER 2020-08-19 19:38 | Emergency (ER) | payer MEDICAID ==
[~2020-08-19] VITALS: Ht 182.9 cm; Wt 86.2 kg
[~2020-08-19 19:38] MED LIST changes: +BACTRIM DS TAB1 EAC1 ORAL; -Bactrim-DS 1 tab ORAL SCH
--- NOTE | 2020-08-19 20:35 | NUR ---
ED Nurse Note: attemptted triage pt not in lobby or outside, will re-try.
--- NOTE | 2020-08-19 20:46 | NUR ---
ED Nurse Note: Second call placed to pt, not in lobby or outside area, pt appears to have left.
--- NOTE | 2020-08-19 20:46 | Emergency Room Report ---
History of Present Illness General Chief Complaint: To Be Triaged Present Illness HPI Patient eloped prior to medical evaluation Allergies: Coded Allergies: No Known Allergies (Unverified , 06/23/20) COVID-19 Screening Contact w/high risk pt: No Experienced COVID-19 symptoms?: No Physical Exam Sp02 EP Interpretation: reviewed, normal Medical Decision Making Diagnostic Impression: Primary Impression: Neck pain Disposition: ELOPED Admit Decision Time: 20:46 Condition: Unknown Referrals: NOT CHOSEN IPA/,REFERRING (PCP) Shawna Miller D.O. Aug 19, 2020 20:46
--- NOTE | 2020-08-19 21:08 | NUR ---
ED Nurse Note: pt initially LWBS but returned, he presents to ED with two large abscesses, one on neck and one on R colar bone. they are open and draining with redness and induration around wound edges. pt reports that he has been seen and treated here several times for abscesses. pt denies any drug use, reports that the abscess usually starts as a small pimple but grows. pt is also c/o cough , sore throat and congestion; he denies coming into contact with anyone who has tested (+) for COVID. recheck of pt's O2 saturation in room was 98% on RA
[2020-08-19 21:11] VITALS: BP 130/80
[2020-08-19] MEDS ORDERED: Omnipaque-300 100ml vial INJ ONE (21:15)
[2020-08-19] MEDS ORDERED: Sodium Chloride 2,600 ML IVLG ONE (21:15)
[2020-08-19] MEDS ORDERED: dexAMETHasone 10mg/ml Inj IV ONE (21:15)
[2020-08-19] MEDS ORDERED: Piperacillin/Tazobactam 2.25 GM in NS 110 ML IV ONE (21:15)
[2020-08-19] MEDS ORDERED: Vancomycin 1 GM in NS 275 ML IVPB ONE (21:15)
--- NOTE | 2020-08-19 21:29 | Emergency Room Report ---
History of Present Illness General Chief Complaint: Skin Rash/Abscess Source: Patient Present Illness HPI Patient is a 40-year-old male PMHx meth, non compliance, emphysema, presents with multiple complaints. First complaint is recurrent left neck and anterior chest abscess. Patient was admitted in Nov for sepsis 2/2 abscess and cellulitis. Symptoms started 3 weeks ago, patient was placed on doxycycline for 10 days, symptoms improved, however when he ran out of doxycycline, patient states that the abscesses got worse. He denies injection drug use, headache, neck rigidity, photophobia, chills, night sweats, midline back pain, urinary retention, bowel or bladder incontinence, petechial rash, chest pain, hemoptysis, shortness of breath or other symptoms. He has not been tested recently for Covid. He is complaining of nasal congestion, sore throat, and dry cough. Tdap is up-to-date, last injection was 2 years ago The patient's symptoms were gradual onset, severity was moderate, duration since 5 days. Quality: Aching, swelling Past medical history: Denies Past surgical history: Right hand surgery Smoking: ++ Alcohol use: Denies Drug use: Meth Review of systems: CONST: No fevers or chills, No night sweats PULMONARY: No productive cough, No shortness of breath CARDIAC: No chest pain, No palpitations GI: No vomiting, No diarrhea , No melena_or_BRBPR : No dysuria, No hematuria, No discharge NEURO: No new_focal_weakness_or_numbness, No confusion, No vision changes 14 point Review of Systems is otherwise negative except per HPI Physical Exam: GENERAL: Awake_alert_ nontoxic, no acute distress Spo2 90% on RA -normal EYES: Extraocular muscles are intact. Conjunctivae clear. Lids without swelling ENT: External nose and ear normal_in_appearance. Oropharynx clear. Head_atraumatic, Moist_oral_mucosa; No stridor, no drooling, no hoarse voice NECK: No JVD. No meningismus. No thyromegaly. Supple. Trachea midline RESP: No chest wall crepitus. Normal respiratory effort. Symmetric rise. No stridor. Clear_to_auscultation_No_rales_No_wheezes. Speaks in full sentences CARDIAC: Tachycardic and regular rhytm. No_significant pedal edema. ABDOMEN: Soft. Nondistended. Nontender_No_rebound_or_guarding. MSK: Normal muscle tone, without rigidity. Extremities without asymmetric deformity or swelling. SKIN: Multiple indurated abscess anterior to trachea, R chest. Non fluctuant. No overlying crepitus. No subcutaneous emphysema. NEUROLOGIC: Alert, oriented x3. Motor_and_sensation_grossly_intact. No truncal ataxia. Gait_normal Psych: Normal mood and affect, normal judgment and insight - COORDINATION OF CARE Case was discussed with: Patient Any labs and imaging that were ordered were interpreted as part of the medical decision making: Medical Decision Making/Plan: Differential includes pneumonia, bronchitis, CHF, pulmonary edema, pulmonary embolism, mediastinal mass, abscess, pleural effusion among others. Patient is afebrile with no nuchal rigidity or petechia. No headache or photophobia. Unlikely meningitis or encephalitis. Patient has multiple indurated abscesses at the anterior chest and anterior to the trachea. No signs of derick angina. Initial SPO2 was 90% and patient was tachycardic. Will initiate septic workup with IV ABx, NS 30cc/kg bolus. Will give vanco/zosyn, pain control. Tdap is UTD. I reviewed chart. Patient was admitted to hospital for sepsis 2/2 cellulitis in Jun 2020. Wound culture grew MRSA sensitive to vanco and bactrim. 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 Time is exclusive of separately billable procedures. Time includes: direct patient care, continuous monitoring and multiple patient reassessment, coordination of patient care, review of patient's medical records, medical consultation, family consultation regarding treatment decisions and documentation of patient care. Medical Decision Making Diagnostic Impression: Primary Impression: Abscess Additional Impressions: Cellulitis Drug abuse Homeless Neck pain Last Vital Signs Date Time Temp Pulse Resp B/P (MAP) Pulse Ox O2 Delivery O2 Flow Rate FiO2 08/19/20 20:53 99.0 92 18 130/80 (97) 90 Room Air Admit Decision Time: 22:00 Condition: Stable Signed Out To: DR CHE pending labs, CT Referrals: NOT CHOSEN IPA/,REFERRING (PCP) Shawna Miller D.O. Aug 19, 2020 21:29
[2020-08-19] MEDS ORDERED: Morphine Sulfate 4mg/ml Inj (IV USE ONLY) IVP ONE (21:45)
--- NOTE | 2020-08-19 21:46 | NUR ---
ED Nurse Note: pt refusing COVID swab at this time, ERMD notified
[2020-08-19 21:55] LABS: APPEARANCE,URINE CLEAR; BILIRUBIN, URINE NEGATIVE (NEGATIVE); GLUCOSE, URINE (UA) NEGATIVE (NEGATIVE); KETONES,URINE NEGATIVE (NEGATIVE); LEUKOCYTE ESTERASE ,URINE NEGATIVE (NEGATIVE); NITRITE,URINE NEGATIVE (NEGATIVE); PH,URINE 5 (4.5-8.0); PROTEIN,URINE 1+ (NEGATIVE); UROBILINOGEN,URINE NORMAL MG/DL (0.0-1.0)
[2020-08-19 22:09] LABS: ANION GAP 8 mmol/L (5-15); BLOOD UREA NITROGEN 15 mg/dL (7-18); CALCIUM 8.7 MG/DL (8.5-10.1); CARBON DIOXIDE 26 MMOL/L (21-32); CHLORIDE 101 MMOL/L (98-107); CREATININE 0.9 MG/DL (0.55-1.30); POTASSIUM 5.6 MMOL/L (3.5-5.1); SODIUM 135 MMOL/L (136-145)
[2020-08-19 22:11] LABS: INR 0.9 (0.9-1.1)
[2020-08-19 22:13] LABS: ALANINE AMINOTRANSFERASE 63 U/L (12-78); ALBUMIN 3.3 G/DL (3.4-5.0); ALBUMIN/GLOBULIN RATIO 0.7 (1.0-2.7); ALKALINE PHOSPHATASE 151 U/L (46-116); ASPARTATE AMINO TRANSFERASE 68 U/L (15-37); BILIRUBIN,TOTAL 0.6 MG/DL (0.2-1.0); CREATINE KINASE 356 U/L (26-308); PHOSPHORUS 4.4 MG/DL (2.5-4.9)
--- NOTE | 2020-08-19 22:25 | NUR ---
ED Nurse Note: pt refusing CT scan at this time
[2020-08-19 22:29] LABS: COLOR,URINE YELLOW
[2020-08-19 23:13] LABS: EOSINOPHILS % (AUTO) 1.3 % (0.0-3.0); HEMATOCRIT 44.2 % (42.0-52.0); HEMOGLOBIN 14.9 G/DL (14.2-18.0); LYMPHOCYTES % (AUTO) 11.1 % (20.0-45.0); MEAN CORPUSCULAR VOLUME 92 FL (80-99); MONOCYTES % (AUTO) 6.9 % (1.0-10.0); NEUTROPHILS % (AUTO) 79.6 % (45.0-75.0); PLATELET COUNT 368 K/UL (150-450); RED BLOOD COUNT 4.82 M/UL (4.70-6.10); RED CELL DISTRIBUTION WIDTH 13.3 % (11.6-14.8); WHITE BLOOD COUNT 16.6 K/UL (4.8-10.8)
[2020-08-19 23:40] VITALS: BP 128/78
--- NOTE | 2020-08-20 01:08 | Diagnostic Imaging Report ---
EXAM: XR Chest, 1 View CLINICAL HISTORY: COUGH TECHNIQUE: Frontal view of the chest. COMPARISON: Chest radiograph dated 06/23/2020. FINDINGS: Limitations: Mild Limited evaluation due to the left costophrenic angle not entirely within the [id number]. Lungs: Unremarkable. No consolidation. Pleural space: Unremarkable. Heart: Unremarkable. No cardiomegaly. Mediastinum: Unremarkable. Bones/joints: Unremarkable. IMPRESSION: No acute findings in the chest.
[2020-08-20 01:56] VITALS: BP 123/79
--- NOTE | 2020-08-20 02:41 | NUR ---
ED Nurse Note: pt is sleeping on the bed. vitals signs are stable and no distress. We will keep monitoring the pt .
[2020-08-20] MEDS ORDERED: BACTRIM DS TAB1 EAC1 ORAL (05:05)
[2020-08-20 07:25] VITALS: BP 129/82
--- NOTE | 2020-08-20 07:25 | NUR ---
ER DISCHARGE NOTE: Patient is cleared to be discharged per ERMD, pt is aox4, on room air, with stable vital signs. pt was given dc and prescription instructions, pt was able to verbalize understanding, pt id band and iv site removed without complications. pt is able to ambulate with steady gait. pt took all belongings.
--- NOTE | 2020-08-20 13:06 | Cardiology Report ---
APPROVED REPORT EKG Measurement Heart [id number] <Conclusion> Sinus tachycardia Possible Left atrial enlargement Borderline ECG
--- NOTE | 2020-08-22 11:57 | History and Physical ---
History of Present Illness General Date patient seen: Aug 22, 2020 Time patient seen: 10:00 Reason for Hospitalization: Skin Rash/Abscess Present Illness HPI 40 years old male, homeless, with past medical history of methamphetamine abuse, recurrent abscesses in his right arm and right chest, grew MRSA in the past, presented initially presented in August 19 blood culture grew gram-negative rods laboratory work-up revealed leukocytosis WBC 16.6 lactic acid 0.9 #2020 for sepsis secondary to abscess and cellulitis. Apparently the current symptoms started about 3 weeks ago patient was placed on doxycycline for 10 days symptoms improved however when he ran out of doxycycline he stated that the abscesses got worse. He denied intravenous drug use. No headache no neck rigidity no photophobia. No fever chills or night sweats. He was also complaining of nasal congestion sore throat and dry cough. Tdap up to date last injection last booster was 2 years ago. In emergency department chest x-ray revealed no acute findings patient received empiric antibiotic patient priorly was admitted in June 2020 and wound culture grew MRSA patient refused CAT scan at that time patient refused Covid testing patient left patient eloped from ED then he presented to the ED on 114 patient was called back due to growth of gram-negative rods on 111 he denied any new symptoms but reported pain in the upper chest and neck area he denied fever and chills upon evaluation patient was afebrile mild tachycardia 107 laboratory work-up revealed leukocytosis but trending down from 16.6 of 111 down to 11.1 hemoglobin 13.6 hematocrit 40.5 stable electrolytes renal parameters. CRP 9.5 on prior admission rapid COVID-19 was negative. Chest x-ray in the prior admission revealed patient subsequently admitted for further management. PMH: recurrent abscesses, hx of MRSA Past surgery: R hand surgery Social hsitroy: + meth abuse, + marijuana, + tobacco smoking, denies IVDA, denies ETOH abuse Family history: non-contributory Medications: reviewed Allergy: NKDA Residence: homeless Allergies: Coded Allergies: No Known Allergies (Unverified , 06/23/20) COVID-19 Screening Contact w/high risk pt: No Experienced COVID-19 symptoms?: No Medication History Scheduled Trimethoprim/Sulfamethoxazole 160/800* (Bactrim Ds Tablet*), 1 TAB ORAL Q12H Trimethoprim/Sulfamethoxazole 160/800* (Bactrim Ds Tablet*), 1 TAB ORAL Q12H Patient History Healthcare decision maker Resuscitation status Full code Advanced Directive on File Review of Systems Eye: Reports: no symptoms ENT: Reports: no symptoms Respiratory: Reports: no symptoms Cardiovascular: Reports: no symptoms Gastrointestinal: Reports: no symptoms Genitourinary: Reports: no symptoms Musculoskeletal: Reports: no symptoms Skin: Reports: see HPI Psychiatric: Reports: no symptoms Endocrine: Reports: no symptoms Hematologic/Lymphatic: Reports: no symptoms Physical Exam General Appearance: WD/WN, no apparent distress Lines, tubes and drains: peripheral HEENT: normocephalic, atraumatic, anicteric, mucous membranes moist Neck: normal alignment, supple Respiratory/Chest: lungs clear, no respiratory distress, respiratory distress Cardiovascular/Chest: normal peripheral pulses, normal rate Extremities: normal range of motion, non-tender Skin Exam: other - Multiple indurated abscess anterior to trachea, R chest. Non fluctuant. No overlying crepitus. No subcutaneous emphysema. 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
== END 2020-08-20 07:25 | disposition home or self-care (01) ==
LOC: EMR 19:58
DX: L02.213 Cutaneous abscess of chest wall (principal); L02.11 Cutaneous abscess of neck; L03.313 Cellulitis of chest wall; L03.221 Cellulitis of neck; M54.2 Cervicalgia; Z59.0 Homelessness; F15.10 Other stimulant abuse, uncomplicated; F12.10 Cannabis abuse, uncomplicated
CPT/HCPCS: 36415; 71045; 80053; 80307; 81003; 82550; 82728; 83605; 83615; 83735; 84100; 84484; 85025; 85379; 85610; 85730; 86140; 87040; 87181; 93005; 96365; 96368; 96375; J2270; J2405; J2543; J3370; J7050; Z7502; 99291

== ENCOUNTER 2020-08-21 23:19 | Inpatient (IN) | payer MEDICAID ==
[~2020-08-21] VITALS: Ht 182.9 cm; Wt 83.9 kg
--- NOTE | 2020-08-21 23:35 | NUR ---
ED Nurse Note: pt back to the ed due to positive blood culture test .pt has abscess on his neck that is infected. pt has no fever, and vitals are stable. Pt A7Ox4, verbal and ambulatory.
[2020-08-21 23:58] VITALS: BP 128/69
[2020-08-22] MEDS ORDERED: Piperacillin/Tazobactam 3.375 GM in NS 110 ML IVPB ONE ×2
[2020-08-22] MEDS ORDERED: Vancomycin 1.5gm/300ml Premix 300 ML IVPB ONE
--- NOTE | 2020-08-22 00:05 | Emergency Room Report ---
History of Present Illness General Chief Complaint: Abnormal Labs Source: Patient Present Illness HPI This is a 40-year-old male with a history of methamphetamine abuse. He also history of abscess to his chest and neck area. He grew out MRSA in the past. He was here yesterday and had blood work done. He had blood culture that grew out gram-negative jessica. He was supposed be admitted but he signed out against medical advice this morning. He was called back. I also wrote him prescription of antibiotics. Here he denies any new symptoms. He still having pain to the upper chest and neck area. There is no drainage. He denies any fever chills. No nausea no vomiting. No fever chills. Allergies: Coded Allergies: No Known Allergies (Unverified , 06/23/20) COVID-19 Screening Contact w/high risk pt: No Experienced COVID-19 symptoms?: No COVID-19 Testing performed ASSEMBLER PRODUCT: No Patient History Past Medical History: see triage record, old chart reviewed Past Surgical History: other Pertinent Family History: none Social History: Reports: smoking, drug use Immunizations: other Reviewed Nursing Documentation: PMH: Agreed; PSxH: Agreed Nursing Documentation-PMH Past Medical History: No Stated History Review of Systems Eye: Denies: eye pain, blurred vision ENT: Denies: ear pain, nose congestion, throat swelling Respiratory: Denies: cough, shortness of breath Cardiovascular: Denies: chest pain, palpitations Gastrointestinal: Denies: abdominal pain, diarrhea, nausea, vomiting Musculoskeletal: Denies: back pain, joint pain Skin: Denies: rash Neurological: Denies: headache, numbness Endocrine: Denies: increased thirst, increased urine Hematologic/Lymphatic: Denies: easy bruising All Other Systems: negative except mentioned in HPI Physical Exam Vital Signs Date Time Temp Pulse Resp B/P (MAP) Pulse Ox O2 Delivery O2 Flow Rate FiO2 08/21/20 23:24 98.2 107 18 71/ 95 Room Air Vitals unremarkable Sp02 EP Interpretation: reviewed, normal General Appearance: well appearing, no apparent distress, alert Head: normocephalic, atraumatic Eyes: bilateral eye PERRL, bilateral eye EOMI ENT: hearing grossly normal, normal pharynx Neck: full range of motion, supple, no meningismus, other - He has an indurated erythematous area to aspect of his neck above the sternal notch. He has purulent discharge. Respiratory: chest non-tender, lungs clear, normal breath sounds, other - Right upper chest with ulcer with eschar. There is surrounding erythema. Cardiovascular #1: regular rate, rhythm, no murmur Gastrointestinal: normal bowel sounds, non tender, no mass, no organomegaly, no bruit, non-distended Musculoskeletal: back normal, normal range of motion, gait/station normal Psychiatric: mood/affect normal Medical Decision Making Diagnostic Impression: Primary Impression: Drug abuse Additional Impressions: Abscess Bacteremia ER Course Patient with abscess to his chest and neck area. This probably secondary to roni g abuse. Most likely MRSA since that was to grow in the past. Patient is noncompliant with medication. He refused certain treatment here. He does not want IV. He refused to wear a mask claiming that he cannot breathe even though he is talking fine without any problem. He also said he had 3 broken nose in the past. He also refused Covid testing. He said it hurts too much even though he never had it done before. He refused because he said he had 3 broken noses in the past. Explained to the patient that because of the Covid pandemic, he is required to wear a mask for staff safety and his safety. I told him that because of the pandemic, we need to to see if he is positive for Covid because this required different floor in isolation. Patient refused. After several attempts and explained that he may if he leaves AGAINST MEDICAL ADVICE, he finally consented to blood work, antibiotics and Covid swabbing. I contacted Dr. Kay for admission. Last Vital Signs Date Time Temp Pulse Resp B/P (MAP) Pulse Ox O2 Delivery O2 Flow Rate FiO2 08/21/20 23:24 98.2 107 18 71/ 95 Room Air Status: improved Disposition: ADMITTED INPATIENT Condition: Serious Referrals: NOT CHOSEN IPA/,REFERRING (PCP) Collin Tavares MD Aug 22, 2020 00:05
[2020-08-22] MEDS ORDERED: Zosyn 3.375gm inj ONE ×2 (00:26→00:27)
[2020-08-22 00:30] LABS: BASOPHILS % (AUTO) 1.4 % (0.0-2.0); EOSINOPHILS % (AUTO) 1.2 % (0.0-3.0); HEMATOCRIT 40.5 % (42.0-52.0); HEMOGLOBIN 13.6 G/DL (14.2-18.0); LYMPHOCYTES % (AUTO) 28.1 % (20.0-45.0); MEAN CORPUSCULAR VOLUME 89 FL (80-99); MONOCYTES % (AUTO) 7.8 % (1.0-10.0); NEUTROPHILS % (AUTO) 61.6 % (45.0-75.0); PLATELET COUNT 380 K/UL (150-450); RED BLOOD COUNT 4.53 M/UL (4.70-6.10); RED CELL DISTRIBUTION WIDTH 12.9 % (11.6-14.8); WHITE BLOOD COUNT 11.1 K/UL (4.8-10.8)
[2020-08-22 00:37] LABS: ANION GAP 9 mmol/L (5-15); BLOOD UREA NITROGEN 18 mg/dL (7-18); CARBON DIOXIDE 27 MMOL/L (21-32); CHLORIDE 104 MMOL/L (98-107); CREATININE 0.8 MG/DL (0.55-1.30); POTASSIUM 3.7 MMOL/L (3.5-5.1); SODIUM 140 MMOL/L (136-145)
--- NOTE | 2020-08-22 01:22 | NUR ---
TRANSFER TO FLOOR: Patient transferred to [facility] as ordered, per AURORA Kay . Report given to AURORA Gregg. All Belongings sent with the pt. RN took the pt on stable condition.
--- NOTE | 2020-08-22 01:25 | NUR ---
NURSE NOTES: Received pt via floyd from ED. Pt is AOX4 complaining of headache 5/10 on pain scale. Denies dizziness or nausea. IV Vanco infusing at this time. IV L AC patent and intact. NAD noted. Bed in lowest position and locked. Side rails up x 2. Call light within reach. Will continue to monitor.
--- NOTE | 2020-08-22 03:00 | NUR ---
NURSE NOTES: Pt refused MRSA and VRE swab.
[2020-08-22 04:00] VITALS: BP 121/74
[2020-08-22] MEDS: Zosyn 3.375gm q8h **Extended infusion IVPB SCH ×6 (05:52→21:37)
--- NOTE | 2020-08-22 07:30 | NUR ---
NURSE NOTES: Received handoff from Cristino SIMON. Patient is awake in bed, eating breakfast. IV running Zosyn per order. Patient does not seem to be in acute distress, Updated on care plan. Neck abscess is covered with 2 4x4 gauze. Call light in reach, bed in lowest position, side rails up.
--- NOTE | 2020-08-22 07:31 | NUR ---
NURSE HAND-OFF: Important Events on Shift: none Patient Status: stable Diet: Regular Pending Orders: none Pending Results/Labs: none Pending MD notification: none Latest Vital Signs: Temperature 98.0 , Pulse 71 , B/P 121 /74 , Respiratory Rate 18 , O2 SAT 98 , Room Air, O2 Flow Rate . Vital Sign Comment: Stable Latest Merrill Fall Score: 35 Fall Risk: Medium Risk Safety Measures: Call light Within Reach, Bed Alarm Zone 1, Side Rails Side Rails x2, Bed position Low and Locked. Fall Precautions: Yellow Socks Report given to: AURORA Moffett
--- NOTE | 2020-08-22 07:37 | NUR ---
HAND-OFF: Report given to: AURORA Moffett
[2020-08-22 08:00] VITALS: BP 133/76
[2020-08-22] MEDS: Heparin 5000 units/ml inj SUBQ SCH ×2 (08:52→21:00)
--- NOTE | 2020-08-22 10:00 | NUR ---
NURSE NOTES: Patient complaining of 10/10 pain. Spoke to Cherelle Stubbs SENIOR MANAGING DIRECTOR and got order for PRN morphine 2mg, given as ordered. Dressing on neck abscess changed with xeroform and 4x4 gauze per Dr. Pedro.
[2020-08-22] MEDS ORDERED: HYDROcodone/Acetamin 5/325 tab ORAL PRN (10:30)
[2020-08-22] MEDS: Morphine Sulfate 2mg/ml Inj(IV/IM USE ONLY) IVP PRN ×2 (10:44→21:40)
[2020-08-22] MEDS: Vancomycin 1.5gm/300ml Premix 300 ML IVPB SCH ×2 (10:57→21:37)
[2020-08-22 12:00] VITALS: BP 131/74
--- NOTE | 2020-08-22 12:03 | History and Physical ---
History of Present Illness General Date patient seen: Aug 22, 2020 Time patient seen: 10:30 Reason for Hospitalization: Abnormal Labs Present Illness HPI HPI 40 years old male, homeless, with past medical history of methamphetamine abuse, recurrent abscesses in his right arm and right chest, grew MRSA in the past, presented initially presented in August 19 blood culture grew gram-negative rods laboratory work-up revealed leukocytosis WBC 16.6 lactic acid 0.9 #2020 for sepsis secondary to abscess and cellulitis. Apparently the current symptoms started about 3 weeks ago patient was placed on doxycycline for 10 days symptoms improved however when he ran out of doxycycline he stated that the abscesses got worse. He denied intravenous drug use. No headache no neck rigidity no photophobia. No fever chills or night sweats. He was also complaining of nasal congestion sore throat and dry cough. Tdap up to date last injection last booster was 2 years ago. In emergency department chest x-ray revealed no acute findings patient received empiric antibiotic patient priorly was admitted in June 2020 and wound culture grew MRSA patient refused CAT scan at that time patient refused Covid testing patient left patient eloped from ED then he presented to the ED on 114 patient was called back due to growth of gram-negative rods on 111 he denied any new symptoms but reported pain in the upper chest and neck area he denied fever and chills upon evaluation patient was afebrile mild tachycardia 107 laboratory work-up revealed leukocytosis but trending down from 16.6 of 111 down to 11.1 hemoglobin 13.6 hematocrit 40.5 stable electrolytes renal parameters. CRP 9.5 on prior admission rapid COVID-19 was negative. Chest x-ray in the prior admission revealed patient subsequently admitted for further management. PMH: recurrent abscesses, hx of MRSA Past surgery: R hand surgery Social hsitroy: + meth abuse, + marijuana, + tobacco smoking, denies IVDA, denies ETOH abuse Family history: non-contributory Medications: reviewed Allergy: NKDA Residence: homeless Allergies: Allergies: Coded Allergies: No Known Allergies (Unverified , 06/23/20) COVID-19 Screening Contact w/high risk pt: No Experienced COVID-19 symptoms?: No Medication History Scheduled Trimethoprim/Sulfamethoxazole 160/800* (Bactrim Ds Tablet*), 1 TAB ORAL Q12H Trimethoprim/Sulfamethoxazole 160/800* (Bactrim Ds Tablet*), 1 TAB ORAL Q12H Patient History Healthcare decision maker Resuscitation status Advanced Directive on File Physical Exam Last 24 Hour Vital Signs Date Time Temp Pulse Resp B/P (MAP) Pulse Ox O2 Delivery O2 Flow Rate FiO2 08/22/20 09:00 Room Air 08/22/20 08:00 97.3 78 20 133/76 (95) 08/22/20 04:00 98.0 71 18 121/74 (90) 98 08/22/20 01:28 Room Air 08/22/20 01:20 97.9 78 19 129/78 98 08/21/20 23:58 98.2 18 128/69 95 Room Air 08/21/20 23:24 98.2 107 18 71/ 95 Room Air Intake and Output 08/21/20 08/22/20 19:00 07:00 Intake Total 320 ml Balance 320 ml Intake Oral 120 ml IV Total 200 ml # Voids 1 Laboratory Tests Test 08/21/20 23:59 White Blood Count 11.1 K/UL (4.8-10.8) H Red Blood Count 4.53 M/UL (4.70-6.10) L Hemoglobin 13.6 G/DL (14.2-18.0) L Hematocrit 40.5 % (42.0-52.0) L Mean Corpuscular Volume 89 FL (80-99) Mean Corpuscular Hemoglobin 30.0 PG (27.0-31.0) Mean Corpuscular Hemoglobin Concent 33.6 G/DL (32.0-36.0) Red Cell Distribution Width 12.9 % (11.6-14.8) Platelet Count 380 K/UL (150-450) Mean Platelet Volume 7.5 FL (6.5-10.1) Neutrophils (%) (Auto) 61.6 % (45.0-75.0) Lymphocytes (%) (Auto) 28.1 % (20.0-45.0) Monocytes (%) (Auto) 7.8 % (1.0-10.0) Eosinophils (%) (Auto) 1.2 % (0.0-3.0) Basophils (%) (Auto) 1.4 % (0.0-2.0) Sodium Level 140 MMOL/L (136-145) Potassium Level 3.7 MMOL/L (3.5-5.1) Chloride Level 104 MMOL/L (98-107) Carbon Dioxide Level 27 MMOL/L (21-32) Anion Gap 9 mmol/L (5-15) Blood Urea Nitrogen 18 mg/dL (7-18) Creatinine 0.8 MG/DL (0.55-1.30) Estimat Glomerular Filtration Rate > 60 mL/min (>60) Glucose Level 129 MG/DL (74-106) H Calcium Level 9.0 MG/DL (8.5-10.1) Microbiology Date/Time Source Procedure Growth Status 08/21/20 23:59 Nasopharynx SARS-CoV-2 RdRp Gene Assay - Final Complete Height (Feet): 6 Weight (Pounds): 185 Medications Current Medications Medications (Trade) Dose Ordered Sig/Gris Route PRN Reason Start Time Stop Time Status Last Admin Dose Admin Acetaminophen (Tylenol) 650 mg Q4H PRN ORAL Mild Pain (Pain Scale 1-3) 08/22/20 02:00 09/21/20 01:59 08/22/20 02:54 Acetaminophen/ Hydrocodone Bitart (Mckean 5/325) 1 tab Q4H PRN ORAL Moderate Pain (Pain Scale 4-6) 08/22/20 10:30 08/29/20 10:29 Heparin Sodium (Porcine) (Heparin 5000 units/ml) 5,000 units EVERY 12 HOURS SUBQ 08/22/20 09:00 10/06/20 08:59 08/22/20 08:52 Morphine Sulfate (Morphine Sulfate) 2 mg Q4H PRN IVP SEVERE PAIN (7-10) 08/22/20 10:30 08/29/20 10:29 08/22/20 10:44 Ondansetron HCl (Zofran) 4 mg Q6H PRN IVP Nausea & Vomiting 08/22/20 02:00 09/21/20 01:59 Piperacillin Sod/ Tazobactam Sod 3.375 gm/Sodium Chloride 110 ml @ 27.5 mls/hr EVERY 8 HOURS IVPB 08/22/20 06:00 08/27/20 05:59 08/22/20 05:52 Sodium Chloride 1,000 ml @ 100 mls/hr Q10H IV 08/22/20 03:00 09/21/20 02:59 08/22/20 02:46 Vancomycin HCl 300 ml @ 150 mls/hr Q12H IVPB 08/22/20 11:00 08/27/20 10:59 08/22/20 10:57 Vancomycin HCl (Vanco pharmacy to dose) 1 ea DAILY PRN MISC Per rx protocol 08/22/20 02:00 09/21/20 01:59 Cherelle Stubbs NP Aug 22, 2020 12:03
--- NOTE | 2020-08-22 12:13 | History and Physical ---
History of Present Illness General Time patient seen: 10:30 Reason for Hospitalization: Abnormal Labs Present Illness HPI 40 years old male, homeless, with past medical history of methamphetamine abuse, recurrent abscesses in his right arm and right chest, grew MRSA in the past, initially presented on August 19. At that time he had leukocytosis WBC 16. lactic acid 0.[address] of the neck , Covid testing, received 1 dose of 1 empiric antibiotic and left AGAINST MEDICAL ADVICE. Blood culture grew gram-negative rods laboratory work-up revealed leukocytosis WBC 16.6 lactic acid 0.9 Patient was also hospitalized in June 2020 for sepsis secondary to abscess and cellulitis. At that time wound culture grew MRSA. The current symptoms started about 3 weeks ago ; patient was prior placed on doxycycline for 10 days , symptoms improved , however when he ran out of doxycycline and stated that the abscesses got worse. He denied intravenous drug use. he denied having I&D, stated he self drained them . No headache ,no neck rigidity ,no photophobia. No fever, chills or night sweats. Tdap up to date ( last i booster was 2 years ago). Patient was called to come to ED due to a growth of gram-negative rods in blood. He denied any new symptoms, but reported pain in the upper chest and neck area. He denied fever and chills. Upon evaluation patient was afebrile, mild tachycardia 107. Laboratory work-up revealed leukocytosis but trending down from 16.6 on 08/19 down to 11.1 ; hemoglobin 13.6 , hematocrit 40.5 , stable electrolytes and renal parameters. Rapid COVID-19 was negative. Chest x-ray on the prior admission revealed no acute cardiopulmonary pathology. Patient subsequently admitted for further management. PMH: recurrent abscesses, hx of MRSA Past surgery: R hand surgery Social hsitroy: + meth abuse, + marijuana, + tobacco smoking, denies IVDA, denies ETOH abuse Family history: non-contributory Medications: reviewed Allergy: NKDA Residence: homeless Allergies: Coded Allergies: No Known Allergies (Unverified , 06/23/20) COVID-19 Screening Contact w/high risk pt: No Experienced COVID-19 symptoms?: No Medication History Scheduled Trimethoprim/Sulfamethoxazole 160/800* (Bactrim Ds Tablet*), 1 TAB ORAL Q12H Trimethoprim/Sulfamethoxazole 160/800* (Bactrim Ds Tablet*), 1 TAB ORAL Q12H Patient History Healthcare decision maker Resuscitation status Full code Advanced Directive on File Review of Systems Constitutional: Reports: no symptoms Eye: Reports: no symptoms ENT: Reports: no symptoms Respiratory: Reports: no symptoms Cardiovascular: Reports: no symptoms Gastrointestinal: Reports: no symptoms Genitourinary: Reports: no symptoms Musculoskeletal: Reports: no symptoms Skin: Reports: see HPI Psychiatric: Reports: no symptoms Neurological: Reports: no symptoms Endocrine: Reports: no symptoms Hematologic/Lymphatic: Reports: no symptoms Physical Exam Physical Exam Narrative General Appearance: WD/WN, no apparent distress Lines, tubes and drains: peripheral HEENT: normocephalic, atraumatic, anicteric, mucous membranes moist Neck: normal alignment, supple Respiratory/Chest: lungs clear, no respiratory distress, respiratory distress Cardiovascular/Chest: normal peripheral pulses, normal rate Extremities: normal range of motion, non-tender Skin Exam: - Multiple indurated abscess anterior to trachea, R chest. Non fluctuant. No overlying crepitus. No subcutaneous emphysema. 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 normal, no motor/sensory deficits, alert, oriented x 3, responsive Musculoskeletal: normal muscle bulk Last 24 Hour Vital Signs Date Time Temp Pulse Resp B/P (MAP) Pulse Ox O2 Delivery O2 Flow Rate FiO2 08/22/20 09:00 Room Air 08/22/20 08:00 97.3 78 20 133/76 (95) 08/22/20 04:00 98.0 71 18 121/74 (90) 98 08/22/20 01:28 Room Air 08/22/20 01:20 97.9 78 19 129/78 98 08/21/20 23:58 98.2 18 128/69 95 Room Air 08/21/20 23:24 98.2 107 18 71/ 95 Room Air Intake and Output 08/21/20 08/22/20 19:00 07:00 Intake Total 320 ml Balance 320 ml Intake Oral 120 ml IV Total 200 ml # Voids 1 Laboratory Tests Test 08/21/20 23:59 White Blood Count 11.1 K/UL (4.8-10.8) H Red Blood Count 4.53 M/UL (4.70-6.10) L Hemoglobin 13.6 G/DL (14.2-18.0) L Hematocrit 40.5 % (42.0-52.0) L Mean Corpuscular Volume 89 FL (80-99) Mean Corpuscular Hemoglobin 30.0 PG (27.0-31.0) Mean Corpuscular Hemoglobin Concent 33.6 G/DL (32.0-36.0) Red Cell Distribution Width 12.9 % (11.6-14.8) Platelet Count 380 K/UL (150-450) Mean Platelet Volume 7.5 FL (6.5-10.1) Neutrophils (%) (Auto) 61.6 % (45.0-75.0) Lymphocytes (%) (Auto) 28.1 % (20.0-45.0) Monocytes (%) (Auto) 7.8 % (1.0-10.0) Eosinophils (%) (Auto) 1.2 % (0.0-3.0) Basophils (%) (Auto) 1.4 % (0.0-2.0) Sodium Level 140 MMOL/L (136-145) Potassium Level 3.7 MMOL/L (3.5-5.1) Chloride Level 104 MMOL/L (98-107) Carbon Dioxide Level 27 MMOL/L (21-32) Anion Gap 9 mmol/L (5-15) Blood Urea Nitrogen 18 mg/dL (7-18) Creatinine 0.8 MG/DL (0.55-1.30) Estimat Glomerular Filtration Rate > 60 mL/min (>60) Glucose Level 129 MG/DL (74-106) H Calcium Level 9.0 MG/DL (8.5-10.1) Microbiology Date/Time Source Procedure Growth Status 08/21/20 23:59 Nasopharynx SARS-CoV-2 RdRp Gene Assay - Final Complete Height (Feet): 6 Weight (Pounds): 185 Medications Current Medications Medications (Trade) Dose Ordered Sig/Gris Route PRN Reason Start Time Stop Time Status Last Admin Dose Admin Acetaminophen (Tylenol) 650 mg Q4H PRN ORAL Mild Pain (Pain Scale 1-3) 08/22/20 02:00 09/21/20 01:59 08/22/20 02:54 Acetaminophen/ Hydrocodone Bitart ([place] 5/325) 1 tab Q4H PRN ORAL Moderate Pain (Pain Scale 4-6) 08/22/20 10:30 08/29/20 10:29 Heparin Sodium (Porcine) (Heparin 5000 units/ml) 5,000 units EVERY 12 HOURS SUBQ 08/22/20 09:00 10/06/20 08:59 08/22/20 08:52 Morphine Sulfate (Morphine Sulfate) 2 mg Q4H PRN IVP SEVERE PAIN (7-10) 08/22/20 10:30 08/29/20 10:29 08/22/20 10:44 Ondansetron HCl (Zofran) 4 mg Q6H PRN IVP Nausea & Vomiting 08/22/20 02:00 09/21/20 01:59 Piperacillin Sod/ Tazobactam Sod 3.375 gm/Sodium Chloride 110 ml @ 27.5 mls/hr EVERY 8 HOURS IVPB 08/22/20 06:00 08/27/20 05:59 08/22/20 05:52 Sodium Chloride 1,000 ml @ 100 mls/hr Q10H IV 08/22/20 03:00 09/21/20 02:59 08/22/20 02:46 Vancomycin HCl 300 ml @ 150 mls/hr Q12H IVPB 08/22/20 11:00 08/27/20 10:59 08/22/20 10:57 Vancomycin HCl (Vanco pharmacy to dose) 1 ea DAILY PRN MISC Per rx protocol 08/22/20 02:00 09/21/20 01:59 Assessment/Plan Assessment/Plan: ASSESSMENT Gram negative bacteremia Recurrent abscess in patient with polysubstance abuse ( suspected IVDA) Hx of MRSA Polysubstance abuse Homeless PLAN OF CARE MS floor CT neck empiric abx fup with wcx ID and surgery consult check ESR and CRP pain management financial aid counselor on compliance with medications, care and abstinence from illicit drug use SW consult case discussed and evaluated by supervising physician Cherelle Stubbs NP Aug 22, 2020 12:13
[2020-08-22] MEDS ORDERED: Omnipaque-300 100ml vial INJ PRN (12:15)
--- NOTE | 2020-08-22 12:42 | NUR ---
NURSE NOTES: Patient refused contrast for CT neck, Enoc MATRIX BATH OPERATOR aware.
--- NOTE | 2020-08-22 13:44 | Consultation ---
DATE OF CONSULTATION: 08/22/2020 INFECTIOUS DISEASES CONSULTATION This consult is for coverage of Dr. Heller. CONSULTING PHYSICIAN: Christiano Javier MD PRIMARY ATTENDING PHYSICIAN: Marlo Kay MD. REASON FOR CONSULTATION: Gram-negative sepsis and neck abscess. HISTORY OF PRESENT ILLNESS: This is a 40-year-old male admitted yesterday complaining of neck pain. He was in the ER on 08/19/2020 because of neck pain and had neck abscess but he eloped from the hospital. Before that, he also had admission for abscess in the right arm. PAST MEDICAL HISTORY: Drug abuse, homelessness. ALLERGIES: No known drug allergies. MEDICATIONS: Vancomycin, morphine, [place], heparin, Zosyn, sodium chloride, Tylenol. SOCIAL HISTORY: Single. Homeless. Smokes one pack of cigarettes a day. Use marijuana. Denies IV drug abuse. Has history of methamphetamine abuse. REVIEW OF SYSTEMS: No fever. No chills. Pain in the neck area. There was some discharge from the neck. No nausea. No vomiting. diarrhea before that is resolved. No problem passing urine. PHYSICAL EXAMINATION: VITAL SIGNS: Temperature 97.7, pulse 75, blood pressure 131/74. GENERAL APPEARANCE: Well developed, no acute distress. HEAD AND NECK: [place] conjunctivae. No oral lesion. midline lower neck abscess with some drainage. There is also erythema and skin lesion in the right subclavian area. HEART: Normal rate. LUNGS: Clear. ABDOMEN: Soft and nontender. EXTREMITIES: No edema. NEUROLOGIC: Awake, alert, oriented x3. LABORATORY DATA: Sodium 140, potassium 3.7, chloride 104, bicarb 27, BUN 18, creatinine 0.8, glucose 129. WBC 11.1, hemoglobin 13.6, hematocrit 40.5, platelets is 380. COVID test was negative. Blood culture from 08/19/2020 growing gram-negative rods. IMPRESSION: Gram-negative sepsis, has lower neck and upper chest abscess, homeless, has nicotine dependence, drug abuse. RECOMMENDATION: Continue with Zosyn and vancomycin. We will follow up blood and wound cultures. The patient needs surgical evaluation. We will check HIV status. At the end of my exam, I thank Dr. Kay, for involving me in the care of this patient. Christiano Javier M.D. DR: Ashli JOB#: [id number] CC: NICKOLAS
--- NOTE | 2020-08-22 14:54 | Diagnostic Imaging Report ---
Indication: Neck pain, history of abscess Technique: Spiral acquisitions obtained through the neck. Multiplanar reconstructions were generated.No IV contrast utilized, for patient preference. Total dose length product 476 mGycm. CTDIvol(s) 14 mGy. Dose reduction achieved using automated exposure control Comparison: 06/24/2020 Findings: Exam is limited without IV contrast demonstration There is a raised area of thickening of the subcutaneous fat in the anterior neck near the base of the neck. This measures approximately 4.5 cm transverse by 1.2 cm AP by 4 cm craniocaudad. Similar finding was demonstrated previously. It appears larger on the current exam, but the apparent size may be affected by differences in positioning, as on the prior study the patient's neck was extended and on the current exam it is flexed. The attenuation is uniform, soft tissue attenuation. There is thickening of the surrounding skin, which appears to be greater than on the previous study, as well as some infiltration of the subcutaneous fat extending away from the lesion. There appears to be a small superficial ulceration. The adenoids are mildly prominent. The right lateral tonsillar pillars contain calcifications and are somewhat prominent. Otherwise unremarkable nasopharynx and hypopharynx and oropharynx. The larynx is unremarkable. The thyroid is unremarkable. No cervical mass or adenopathy. The bilateral parapharyngeal spaces are clear and symmetric. The salivary glands are unremarkable. The included lung apices demonstrate small bullous changes on the right. The included upper mediastinum is unremarkable. The optic globes are intact. The mastoids are clear. The bones are intact. Lucencies about the mandibular molars raise concern for apical root abscesses. There is also evidence of dental caries. Impression: Limited exam, due to lack of IV contrast administration Raised area of thickening of the subcutaneous fat in the anterior neck, as described, presumably clinically evident, with suggestion of a small superficial ulcer. Most likely an area of soft tissue cellulitis and ulceration. There is also suggestion of inflammation of soft tissues extending away from this lesion. Although there is no suggestion of abscess on this exam, the presence or absence of an abscess cannot be evaluated adequately in the absence of IV contrast. Sonography may be useful to see if there is underlying fluid collection. Mildly prominent adenoids and tonsils, also previously reported Apical bullous changes within the right lung Evidence of dental and periodontal disease The CT scanner at [facility] is accredited by the [employer] and the scans are performed using protocols designed to limit radiation exposure to as low as reasonably achievable to attain images of sufficient resolution adequate for diagnostic evaluation.
--- NOTE | 2020-08-22 16:00 | NUR ---
EMAIL MANAGER NOTE SW attempted to meet w/ pt for psychosocial assessment. Pt is sleeping, did not respond to this SW. SW will attempt to meet w/ pt on the next day.
--- NOTE | 2020-08-22 16:03 | NUR ---
CASE MANAGEMENT:REVIEW 40 YR OLD MALE WAS INSTRUCTED TO RETURN TO ER CC; ABNORMAL LABS (POSITIVE BLOOD CX) SI: NECK ABSCESS. BACTEREMIA. DRUG ABUSE 98.2 107 18 128/69 95% ON RA. WBC+11.1 IS: IV ZOSYN IV VANCOMYCIN : TO MED/SURG [facility]
--- NOTE | 2020-08-22 19:05 | NUR ---
NURSE HAND-OFF: Important Events on Shift:[Pain Management] Patient Status: [stable] Diet: [reg] Pending Orders: [] Pending Results/Labs:[] Pending MD notification:[] Latest Vital Signs: Temperature 97.7 , Pulse 75 , B/P 131 /74 , Respiratory Rate 20 , O2 SAT 98 , Room Air, O2 Flow Rate . Vital Sign Comment: [] Latest [place] Fall Score: 35 Fall Risk: Medium Risk Safety Measures: Call light Within Reach, Bed Alarm Zone 1, Side Rails Side Rails x2, Bed position Low and Locked. Fall Precautions: Yellow Socks Report given to [Sarah SIMON].
--- NOTE | 2020-08-22 19:35 | NUR ---
NURSE NOTES: Received report from aurora joyner. patient is on bed, asleep. on room air, no sob. iv access on the left ac, with ivf as ordered. per AURORA joyner," patient doesn't want to get disturb with taking vitals or meds when he's asleep". denies any pain or discomfort. kept head of bed elevated. bed locked and in lowest position. call light and light button within easy reach. will continue plan of care.
[2020-08-22 20:00] VITALS: BP 129/76
[2020-08-23 04:00] VITALS: BP 125/72
[2020-08-23] MEDS: Zosyn 3.375gm q8h **Extended infusion IVPB SCH ×6 (05:50→19:46)
--- NOTE | 2020-08-23 06:09 | NUR ---
NURSE HAND-OFF: Important Events on Shift: TUBE FEEDING; O2 CARE; RESTRAINTS CARE Patient Status: STABLE Diet: TUBE FEEDING Pending Orders: Pending Results/Labs: Pending MD notification: Latest Vital Signs: Temperature 97.9 , Pulse 72 , B/P 125 /72 , Respiratory Rate 20 , O2 SAT 99 , Room Air, O2 Flow Rate . Vital Sign Comment: Latest [place] Fall Score: 35 Fall Risk: Medium Risk Safety Measures: Call light Within Reach, Bed Alarm Zone 1, Side Rails Side Rails x2, Bed position Low and Locked. Fall Precautions: Yellow Socks Addendum: 08/23/20 at 0613 by Ciara Guardado RN addendum: wrong entry
--- NOTE | 2020-08-23 06:13 | NUR ---
NURSE HAND-OFF: Important Events on Shift: pain mngt Patient Status: stable Diet: regular Pending Orders: Pending Results/Labs: Pending MD notification: Latest Vital Signs: Temperature 97.9 , Pulse 72 , B/P 125 /72 , Respiratory Rate 20 , O2 SAT 99 , Room Air, O2 Flow Rate . Vital Sign Comment: Latest [place] Fall Score: 35 Fall Risk: Medium Risk Safety Measures: Call light Within Reach, Bed Alarm Zone 1, Side Rails Side Rails x2, Bed position Low and Locked. Fall Precautions: Yellow Socks Addendum: 08/23/20 at 0717 by Ciara Guardado RN HAND-OFF: Report given to mayra joyner.
--- NOTE | 2020-08-23 07:15 | NUR ---
NURSE NOTES: Received report from Sarah SIMON. Patient is in bed sleeping , no SOB noted, on room air. No acute distress noted, no facial grimacing. IV patent. Bed in lowest position, call light in reach, side rails up x2.
--- NOTE | 2020-08-23 09:17 | Pulmonology Progress Note ---
Subjective Allergies: Coded Allergies: No Known Allergies (Unverified , 06/23/20) Subjective no fevers labs pending for this am seen by ID and surgery started on empiric abx reports neck pain no SOB NO CP Objective Last 24 Hour Vital Signs Date Time Temp Pulse Resp B/P (MAP) Pulse Ox O2 Delivery O2 Flow Rate FiO2 08/23/20 04:00 97.9 72 20 125/72 (89) 99 08/22/20 22:10 97.7 08/22/20 21:00 Room Air 08/22/20 20:00 97.6 76 20 129/76 (93) 98 08/22/20 12:00 97.7 75 20 131/74 (93) 98 Intake and Output 08/22/20 08/23/20 19:00 07:00 Intake Total 600 ml 650 ml Balance 600 ml 650 ml Intake Oral 600 ml 650 ml # Voids 3 4 Objective General Appearance: WD/WN, no apparent distress Lines, tubes and drains: peripheral HEENT: normocephalic, atraumatic, anicteric, mucous membranes moist Neck: normal alignment, supple Respiratory/Chest: lungs clear, no respiratory distress, respiratory distress Cardiovascular/Chest: normal peripheral pulses, normal rate Extremities: normal range of motion, non-tender Skin Exam: - Multiple indurated abscess anterior to trachea, R chest. Non fluctuant. No overlying crepitus. No subcutaneous emphysema. 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, no motor/sensory deficits, alert, oriented x 3, responsive Musculoskeletal: normal muscle bulk Microbiology Date/Time Source Procedure Growth Status 08/21/20 23:59 Nasopharynx SARS-CoV-2 RdRp Gene Assay - Final Complete Current Medications Medications (Trade) Dose Ordered Sig/Gris Route PRN Reason Start Time Stop Time Status Last Admin Dose Admin Acetaminophen (Tylenol) 650 mg Q4H PRN ORAL Mild Pain (Pain Scale 1-3) 08/22/20 02:00 09/21/20 01:59 08/22/20 02:54 Acetaminophen/ Hydrocodone Bitart ([place] 5/325) 1 tab Q4H PRN ORAL Moderate Pain (Pain Scale 4-6) 08/22/20 10:30 08/29/20 10:29 Heparin Sodium (Porcine) (Heparin 5000 units/ml) 5,000 units EVERY 12 HOURS SUBQ 08/22/20 09:00 10/06/20 08:59 08/22/20 08:52 Iohexol (OMNIPAQUE-300 100ml) 100 ml ONCE PRN INJ for radiology 08/22/20 12:15 08/25/20 23:59 Morphine Sulfate (Morphine Sulfate) 2 mg Q4H PRN IVP SEVERE PAIN (7-10) 08/22/20 10:30 08/29/20 10:29 08/22/20 21:40 Ondansetron HCl (Zofran) 4 mg Q6H PRN IVP Nausea & Vomiting 08/22/20 02:00 09/21/20 01:59 Piperacillin Sod/ Tazobactam Sod 3.375 gm/Sodium Chloride 110 ml @ 27.5 mls/hr EVERY 8 HOURS IVPB 08/22/20 06:00 08/27/20 05:59 08/23/20 05:50 Sodium Chloride 1,000 ml @ 100 mls/hr Q10H IV 08/22/20 03:00 09/21/20 02:59 08/22/20 21:37 Vancomycin HCl 300 ml @ 150 mls/hr Q12H IVPB 08/22/20 11:00 08/27/20 10:59 08/22/20 21:37 Vancomycin HCl (Vanco pharmacy to dose) 1 ea DAILY PRN MISC Per rx protocol 08/22/20 02:00 09/21/20 01:59 Assessment/Plan Assessment/Plan ASSESSMENT Gram negative bacteremia Recurrent abscess in patient with polysubstance abuse ( suspected IVDA) Hx of MRSA Polysubstance abuse Homeless PLAN OF CARE MS floor CT neck ( w/out contrast only- since pt refused with IV contrast ) noted abx per ID fup with wcx BCX + GNB /Sphingomonas ID and surgery eval appreciated check ESR and CRP HIV pending pain management chemical dependency counselor on compliance with medications, care and abstinence from illicit drug use SW consult case discussed and evaluated by supervising physician Cherelle Stubbs NP Aug 23, 2020 09:17
[2020-08-23] MEDS: Heparin 5000 units/ml inj SUBQ SCH ×2 (09:24→19:47)
[2020-08-23 10:23] LABS: BASOPHILS % (AUTO) 1.7 % (0.0-2.0); EOSINOPHILS % (AUTO) 2.7 % (0.0-3.0); HEMOGLOBIN 15.8 G/DL (14.2-18.0); LYMPHOCYTES % (AUTO) 26.5 % (20.0-45.0); MEAN CORPUSCULAR VOLUME 90 FL (80-99); MONOCYTES % (AUTO) 9.1 % (1.0-10.0); PLATELET COUNT 445 K/UL (150-450); RED BLOOD COUNT 5.44 M/UL (4.70-6.10); RED CELL DISTRIBUTION WIDTH 12.8 % (11.6-14.8); WHITE BLOOD COUNT 9.2 K/UL (4.8-10.8)
[2020-08-23 11:13] LABS: ALANINE AMINOTRANSFERASE 101 U/L (12-78); ALBUMIN 2.9 G/DL (3.4-5.0); ALBUMIN/GLOBULIN RATIO 0.7 (1.0-2.7); ALKALINE PHOSPHATASE 130 U/L (46-116); ANION GAP 6 mmol/L (5-15); ASPARTATE AMINO TRANSFERASE 29 U/L (15-37); BILIRUBIN,TOTAL 0.3 MG/DL (0.2-1.0); BLOOD UREA NITROGEN 15 mg/dL (7-18); CALCIUM 8.9 MG/DL (8.5-10.1); CARBON DIOXIDE 28 MMOL/L (21-32); CHLORIDE 102 MMOL/L (98-107); CREATININE 0.8 MG/DL (0.55-1.30); SODIUM 136 MMOL/L (136-145)
--- NOTE | 2020-08-23 11:28 | Infectious Diseases Prog Note ---
Assessment/Plan Assessment/Plan antibiotics : vancomycin iv, zosyn A 1. neck wound infection 2. sphingomonas sepsis P 1. continue iv vancomycin, zosyn 2. neck wound culture 3. will follow up cultures Subjective Constitutional: Denies: fever, chills Respiratory: Reports: dry cough; Denies: shortness of breath Gastrointestinal/Abdominal: Denies: nausea, vomiting, diarrhea Neurologic: Reports: headache Musculoskeletal: Reports: pain Allergies: Coded Allergies: No Known Allergies (Unverified , 06/23/20) Objective Last 24 Hour Vital Signs Date Time Temp Pulse Resp B/P (MAP) Pulse Ox O2 Delivery O2 Flow Rate FiO2 08/23/20 09:00 Room Air 08/23/20 04:00 97.9 72 20 125/72 (89) 99 08/22/20 22:10 97.7 08/22/20 21:00 Room Air 08/22/20 20:00 97.6 76 20 129/76 (93) 98 08/22/20 12:00 97.7 75 20 131/74 (93) 98 Height (Feet): 6 Weight (Pounds): 185 HEENT: other - neck wound Respiratory/Chest: lungs clear Cardiovascular: normal rate, regular rhythm, no gallop/murmur Abdomen: soft, non tender Extremities: no edema Microbiology Date/Time Source Procedure Growth Status 08/21/20 23:59 Nasopharynx SARS-CoV-2 RdRp Gene Assay - Final Complete Laboratory Tests Test 08/23/20 09:45 White Blood Count 9.2 K/UL (4.8-10.8) Red Blood Count 5.44 M/UL (4.70-6.10) Hemoglobin 15.8 G/DL (14.2-18.0) Hematocrit 49.0 % (42.0-52.0) Mean Corpuscular Volume 90 FL (80-99) Mean Corpuscular Hemoglobin 29.0 PG (27.0-31.0) Mean Corpuscular Hemoglobin Concent 32.1 G/DL (32.0-36.0) Red Cell Distribution Width 12.8 % (11.6-14.8) Platelet Count 445 K/UL (150-450) Mean Platelet Volume 7.2 FL (6.5-10.1) Neutrophils (%) (Auto) 60.0 % (45.0-75.0) Lymphocytes (%) (Auto) 26.5 % (20.0-45.0) Monocytes (%) (Auto) 9.1 % (1.0-10.0) Eosinophils (%) (Auto) 2.7 % (0.0-3.0) Basophils (%) (Auto) 1.7 % (0.0-2.0) Erythrocyte Sedimentation Rate Pending Sodium Level 136 MMOL/L (136-145) Potassium Level 4.0 MMOL/L (3.5-5.1) Chloride Level 102 MMOL/L (98-107) Carbon Dioxide Level 28 MMOL/L (21-32) Anion Gap 6 mmol/L (5-15) Blood Urea Nitrogen 15 mg/dL (7-18) Creatinine 0.8 MG/DL (0.55-1.30) Estimat Glomerular Filtration Rate > 60 mL/min (>60) Glucose Level 97 MG/DL (74-106) Calcium Level 8.9 MG/DL (8.5-10.1) Total Bilirubin 0.3 MG/DL (0.2-1.0) Aspartate Amino Transf (AST/SGOT) 29 U/L (15-37) Alanine Aminotransferase (ALT/SGPT) 101 U/L (12-78) H Alkaline Phosphatase 130 U/L (46-116) H C-Reactive Protein, Quantitative 1.1 mg/dL (0.00-0.90) H Total Protein 7.1 G/DL (6.4-8.2) Albumin 2.9 G/DL (3.4-5.0) L Globulin 4.2 g/dL Albumin/Globulin Ratio 0.7 (1.0-2.7) L HIV (1&2) Antibody Rapid Pending Current Medications Medications (Trade) Dose Ordered Sig/Gris Route PRN Reason Start Time Stop Time Status Last Admin Dose Admin Acetaminophen (Tylenol) 650 mg Q4H PRN ORAL Mild Pain (Pain Scale 1-3) 08/22/20 02:00 09/21/20 01:59 08/22/20 02:54 Acetaminophen/ Hydrocodone Bitart ([place] 5/325) 1 tab Q4H PRN ORAL Moderate Pain (Pain Scale 4-6) 08/22/20 10:30 08/29/20 10:29 Heparin Sodium (Porcine) (Heparin 5000 units/ml) 5,000 units EVERY 12 HOURS SUBQ 08/22/20 09:00 10/06/20 08:59 08/23/20 09:24 Iohexol (OMNIPAQUE-300 100ml) 100 ml ONCE PRN INJ for radiology 08/22/20 12:15 08/25/20 23:59 Morphine Sulfate (Morphine Sulfate) 2 mg Q4H PRN IVP SEVERE PAIN (7-10) 08/22/20 10:30 08/29/20 10:29 08/22/20 21:40 Ondansetron HCl (Zofran) 4 mg Q6H PRN IVP Nausea & Vomiting 08/22/20 02:00 09/21/20 01:59 Piperacillin Sod/ Tazobactam Sod 3.375 gm/Sodium Chloride 110 ml @ 27.5 mls/hr EVERY 8 HOURS IVPB 08/22/20 06:00 08/27/20 05:59 08/23/20 05:50 Sodium Chloride 1,000 ml @ 100 mls/hr Q10H IV 08/22/20 03:00 09/21/20 02:59 08/23/20 09:23 Vancomycin HCl 300 ml @ 150 mls/hr Q12H IVPB 08/22/20 11:00 08/27/20 10:59 08/22/20 21:37 Vancomycin HCl (Vanco pharmacy to dose) 1 ea DAILY PRN MISC Per rx protocol 08/22/20 02:00 09/21/20 01:59 Lucero Heller MD Aug 23, 2020 11:28
[2020-08-23] MEDS: Vancomycin 1.5gm/300ml Premix 300 ML IVPB SCH ×2 (11:29→23:48)
[2020-08-23 12:00] VITALS: BP 130/75
--- NOTE | 2020-08-23 12:15 | NUR ---
NURSE NOTES: Culture swab collected for neck abscess. Dressing changed covered with xeroform and 4X4. Moderate thick yellow discharge.
--- NOTE | 2020-08-23 14:02 | NUR ---
CASE MANAGEMENT:REVIEW SI;NECK WOUND INFECTION. SPHINGOMONAS SEPSIS. 97.9 88 20 130/75 96% ON RA ALT+ 101 ALP+ 130 CRP+ 1.1 ALB- 2.9 IS;ZOSYN IV Q8 VANCOMYCIN IV Q12 HEPARIN SQ Q12 IVF NS @ 100 ML/HR MED SURG STATUS DCP;PATIENT IS FROM HOME
--- NOTE | 2020-08-23 14:49 | NUR ---
EXECUTIVE MANAGER NOTE Pt presents as A&O4x. Pt is homeless, is staying at an abandoned restaurant on [facility]. Pt did not provide the exact location. Pt receives no income. Pt denies current probation/parole. Pt has hx of meth abuse. Pt reports current THC abuse. Pt declined counseling/tx intervention on substance abuse. Pt also denies mental illness. Pt is ambulatory w/o DME and independent w/ ADLs. SW and pt discussed possible placement options. However, pt refused d/t lack of funding. Pt wants dc own resource to preferred location. SW explained negative ramification of unlicensed facilities/self-directing. Pt verbalized understanding. PT has appropriate clothing. Pt does not have any sexual assault social worker concern/needs at this time. SW to F/U as needed. DCP:own resource to preferred location via public transportation
[2020-08-23 16:00] VITALS: BP 128/75
--- NOTE | 2020-08-23 16:30 | Surgery Progress Note ---
Surgery Progress Note Subjective Additional Comments ct noted no n/v dressings going well more amenable to treatment today Objective Last 24 Hour Vital Signs Date Time Temp Pulse Resp B/P (MAP) Pulse Ox O2 Delivery O2 Flow Rate FiO2 08/23/20 16:00 97.8 88 18 128/75 (92) 96 08/23/20 12:00 96.8 88 18 130/75 (93) 96 08/23/20 09:00 Room Air 08/23/20 04:00 97.9 72 20 125/72 (89) 99 08/22/20 22:10 97.7 08/22/20 21:00 Room Air 08/22/20 20:00 97.6 76 20 129/76 (93) 98 I&O Intake and Output 08/22/20 08/23/20 19:00 07:00 Intake Total 600 ml 650 ml Balance 600 ml 650 ml Intake Oral 600 ml 650 ml # Voids 3 4 Dressing: saturated Cardiovascular: RSR Respiratory: clear Abdomen: soft, non-tender, present bowel sounds Extremities: no edema, no tenderness, no cyanosis Laboratory Tests Test 08/23/20 09:45 White Blood Count 9.2 K/UL (4.8-10.8) Red Blood Count 5.44 M/UL (4.70-6.10) Hemoglobin 15.8 G/DL (14.2-18.0) Hematocrit 49.0 % (42.0-52.0) Mean Corpuscular Volume 90 FL (80-99) Mean Corpuscular Hemoglobin 29.0 PG (27.0-31.0) Mean Corpuscular Hemoglobin Concent 32.1 G/DL (32.0-36.0) Red Cell Distribution Width 12.8 % (11.6-14.8) Platelet Count 445 K/UL (150-450) Mean Platelet Volume 7.2 FL (6.5-10.1) Neutrophils (%) (Auto) 60.0 % (45.0-75.0) Lymphocytes (%) (Auto) 26.5 % (20.0-45.0) Monocytes (%) (Auto) 9.1 % (1.0-10.0) Eosinophils (%) (Auto) 2.7 % (0.0-3.0) Basophils (%) (Auto) 1.7 % (0.0-2.0) Erythrocyte Sedimentation Rate 20 MM/HR (0-15) H Sodium Level 136 MMOL/L (136-145) Potassium Level 4.0 MMOL/L (3.5-5.1) Chloride Level 102 MMOL/L (98-107) Carbon Dioxide Level 28 MMOL/L (21-32) Anion Gap 6 mmol/L (5-15) Blood Urea Nitrogen 15 mg/dL (7-18) Creatinine 0.8 MG/DL (0.55-1.30) Estimat Glomerular Filtration Rate > 60 mL/min (>60) Glucose Level 97 MG/DL (74-106) Calcium Level 8.9 MG/DL (8.5-10.1) Total Bilirubin 0.3 MG/DL (0.2-1.0) Aspartate Amino Transf (AST/SGOT) 29 U/L (15-37) Alanine Aminotransferase (ALT/SGPT) 101 U/L (12-78) H Alkaline Phosphatase 130 U/L (46-116) H C-Reactive Protein, Quantitative 1.1 mg/dL (0.00-0.90) H Total Protein 7.1 G/DL (6.4-8.2) Albumin 2.9 G/DL (3.4-5.0) L Globulin 4.2 g/dL Albumin/Globulin Ratio 0.7 (1.0-2.7) L HIV (1&2) Antibody Rapid Pending Plan Problems: (1) Sepsis (2) Encounter for medication refill (3) Cellulitis Assessment & Plan: There is a raised area of thickening of the subcutaneous fat in the anterior neck near the base of the neck. This measures approximately 4.5 cm transverse by 1.2 cm AP by 4 cm craniocaudad. Similar finding was demonstrated previously. It appears larger on the current exam, but the apparent size may be affected by differences in positioning, as on the prior study the patient's neck was extended and on the current exam it is flexed. The attenuation is uniform, soft tissue attenuation. There is thickening of the surrounding skin, which appears to be greater than on the previous study, as well as some infiltration of the subcutaneous fat extending away from the lesion. There appears to be a small superficial ulceration. The adenoids are mildly prominent. The right lateral tonsillar pillars contain calcifications and are somewhat prominent. Otherwise unremarkable nasopharynx and hypopharynx and oropharynx. The larynx is unremarkable. The thyroid is unremarkable. No cervical mass or adenopathy. The bilateral parapharyngeal spaces are clear and symmetric. The salivary glands are unremarkable. The included lung apices demonstrate small bullous changes on the right. The included upper mediastinum is unremarkable. The optic globes are intact. The mastoids are clear. The bones are intact. Lucencies about the mandibular molars raise concern for apical root abscesses. There is also evidence of dental caries. Impression: Limited exam, due to lack of IV contrast administration Raised area of thickening of the subcutaneous fat in the anterior neck, as described, presumably clinically evident, with suggestion of a small superficial ulcer. Most likely an area of soft tissue cellulitis and ulceration. There is also suggestion of inflammation of soft tissues extending away from this lesion. Although there is no suggestion of abscess on this exam, the presence or absence of an abscess cannot be evaluated adequately in the absence of IV contrast. Sonography may be useful to see if there is underlying fluid collection. Mildly prominent adenoids and tonsils, also previously reported Apical bullous changes within the right lung Evidence of dental and periodontal disease Carbuncle CT identified continue antibiotics and local wound care no acute surgical intervention planned at this time. (4) Neck pain (5) Homeless (6) Drug abuse (7) Abscess (8) Bacteremia Arvind Pedro Aug 23, 2020 16:30
--- NOTE | 2020-08-23 16:58 | Consultation ---
History of Present Illness General Date patient seen: Aug 23, 2020 Reason for Hospitalization: Abnormal Labs Present Illness HPI Late entry as patient was initially seen on August 22, 2019 when care plan initiated patient presented to [facility] complaining of worsening sternal neck abscess wound. States has been draining himself. Feels unwell. Significant pain. Surgery called to eval assist with care. Allergies: Coded Allergies: No Known Allergies (Unverified , 06/23/20) COVID-19 Screening Contact w/high risk pt: No Experienced COVID-19 symptoms?: No Medication History Discontinued Medications Trimethoprim/Sulfamethoxazole 160/800* (Bactrim Ds Tablet*), 1 TAB ORAL Q12H Discontinued Reason: Therapy completed Trimethoprim/Sulfamethoxazole 160/800* (Bactrim Ds Tablet*), 1 TAB ORAL Q12H Discontinued Reason: Therapy completed Patient History History Provided By: Patient, Medical Record, PMD Healthcare decision maker Resuscitation status Advanced Directive on File Past Medical/Surgical History Past Medical/Surgical History: (1) Drug abuse (2) Abscess (3) Bacteremia (4) Cellulitis (5) Sepsis (6) Neck pain (7) Homeless (8) Encounter for medication refill Review of Systems Review of Symptoms General ROS: no weight loss or fever Psychological ROS: no depression or mood changes, no memory loss Ophthalmic ROS: no visual changes or eye irritation ENT ROS: no nasal congestion, hearing loss, dizziness Allergy and Immunology ROS: no allergic symptoms or urticaria Hematological and Lymphatic ROS: no swollen glands, unusual bleeding or bruising Endocrine ROS: no polyuria, polydipsia, weight changes, temperature intolerance Respiratory ROS: no cough, shortness of breath, or wheezing Cardiovascular ROS: no chest pain or dyspnea on exertion Gastrointestinal ROS: denies abdominal pain, bright red blood in stool. Musculoskeletal ROS: no myalgias or arthralgias Neurological ROS: no TIA or stroke symptoms Dermatological ROS: no new or changing skin lesions, rashes or pruritis Physical Exam Physical Exam General appearance: alert, cooperative, no distress, appears stated age Head: Normocephalic, without obvious abnormality, atraumatic Eyes: conjunctivae/corneas clear. PERRL, EOM's intact. Fundi benign Throat: Lips, mucosa, and tongue normal. Teeth and gums normal Neck: supple, symmetrical, trachea midline, no adenopathy, thyroid: not enlarged, symmetric, no tenderness/mass/nodules, no carotid bruit and no JVD abscess identified Lungs: clear to auscultation bilaterally Heart: regular rate and rhythm, S1, S2 normal, no murmur, click, rub or gallop Abdomen: soft, non-tender. Bowel sounds normal. No masses, no organomegaly Extremities: extremities normal, atraumatic, no cyanosis or edema Pulses: 2+ and symmetric Skin: Skin color, texture, turgor normal. No rashes or lesions Neurologic: Grossly normal Last 24 Hour Vital Signs Date Time Temp Pulse Resp B/P (MAP) Pulse Ox O2 Delivery O2 Flow Rate FiO2 08/23/20 16:00 97.8 88 18 128/75 (92) 96 08/23/20 12:00 96.8 88 18 130/75 (93) 96 08/23/20 09:00 Room Air 08/23/20 04:00 97.9 72 20 125/72 (89) 99 08/22/20 22:10 97.7 08/22/20 21:00 Room Air 08/22/20 20:00 97.6 76 20 129/76 (93) 98 Intake and Output 08/22/20 08/23/20 19:00 07:00 Intake Total 600 ml 650 ml Balance 600 ml 650 ml Intake Oral 600 ml 650 ml # Voids 3 4 Laboratory Tests Test 08/23/20 09:45 White Blood Count 9.2 K/UL (4.8-10.8) Red Blood Count 5.44 M/UL (4.70-6.10) Hemoglobin 15.8 G/DL (14.2-18.0) Hematocrit 49.0 % (42.0-52.0) Mean Corpuscular Volume 90 FL (80-99) Mean Corpuscular Hemoglobin 29.0 PG (27.0-31.0) Mean Corpuscular Hemoglobin Concent 32.1 G/DL (32.0-36.0) Red Cell Distribution Width 12.8 % (11.6-14.8) Platelet Count 445 K/UL (150-450) Mean Platelet Volume 7.2 FL (6.5-10.1) Neutrophils (%) (Auto) 60.0 % (45.0-75.0) Lymphocytes (%) (Auto) 26.5 % (20.0-45.0) Monocytes (%) (Auto) 9.1 % (1.0-10.0) Eosinophils (%) (Auto) 2.7 % (0.0-3.0) Basophils (%) (Auto) 1.7 % (0.0-2.0) Erythrocyte Sedimentation Rate 20 MM/HR (0-15) H Sodium Level 136 MMOL/L (136-145) Potassium Level 4.0 MMOL/L (3.5-5.1) Chloride Level 102 MMOL/L (98-107) Carbon Dioxide Level 28 MMOL/L (21-32) Anion Gap 6 mmol/L (5-15) Blood Urea Nitrogen 15 mg/dL (7-18) Creatinine 0.8 MG/DL (0.55-1.30) Estimat Glomerular Filtration Rate > 60 mL/min (>60) Glucose Level 97 MG/DL (74-106) Calcium Level 8.9 MG/DL (8.5-10.1) Total Bilirubin 0.3 MG/DL (0.2-1.0) Aspartate Amino Transf (AST/SGOT) 29 U/L (15-37) Alanine Aminotransferase (ALT/SGPT) 101 U/L (12-78) H Alkaline Phosphatase 130 U/L (46-116) H C-Reactive Protein, Quantitative 1.1 mg/dL (0.00-0.90) H Total Protein 7.1 G/DL (6.4-8.2) Albumin 2.9 G/DL (3.4-5.0) L Globulin 4.2 g/dL Albumin/Globulin Ratio 0.7 (1.0-2.7) L HIV (1&2) Antibody Rapid Pending Height (Feet): 6 Weight (Pounds): 185 Medications Current Medications Medications (Trade) Dose Ordered Sig/Gris Route PRN Reason Start Time Stop Time Status Last Admin Dose Admin Acetaminophen (Tylenol) 650 mg Q4H PRN ORAL Mild Pain (Pain Scale 1-3) 08/22/20 02:00 09/21/20 01:59 08/22/20 02:54 Acetaminophen/ Hydrocodone Bitart ([place] 5/325) 1 tab Q4H PRN ORAL Moderate Pain (Pain Scale 4-6) 08/22/20 10:30 08/29/20 10:29 Heparin Sodium (Porcine) (Heparin 5000 units/ml) 5,000 units EVERY 12 HOURS SUBQ 08/22/20 09:00 10/06/20 08:59 08/23/20 09:24 Iohexol (OMNIPAQUE-300 100ml) 100 ml ONCE PRN INJ for radiology 08/22/20 12:15 08/25/20 23:59 Morphine Sulfate (Morphine Sulfate) 2 mg Q4H PRN IVP SEVERE PAIN (7-10) 08/22/20 10:30 08/29/20 10:29 08/22/20 21:40 Ondansetron HCl (Zofran) 4 mg Q6H PRN IVP Nausea & Vomiting 08/22/20 02:00 09/21/20 01:59 Piperacillin Sod/ Tazobactam Sod 3.375 gm/Sodium Chloride 110 ml @ 27.5 mls/hr EVERY 8 HOURS IVPB 08/22/20 06:00 08/27/20 05:59 08/23/20 14:11 Sodium Chloride 1,000 ml @ 100 mls/hr Q10H IV 08/22/20 03:00 09/21/20 02:59 08/23/20 09:23 Vancomycin HCl 300 ml @ 150 mls/hr Q12H IVPB 08/22/20 11:00 08/27/20 10:59 08/23/20 11:29 [facility] 1 ea DAILY PRN MISC Per rx protocol 08/22/20 02:00 09/21/20 01:59 Assessment/Plan Problem List: (1) Sepsis ICD Codes: A41.9 - Sepsis, unspecified organism SNOMED: 71060672 (2) Encounter for medication refill ICD Codes: Z76.0 - Encounter for issue of repeat prescription SNOMED: 082792708, 698122222, 941520799 (3) Cellulitis Assessment & Plan: 40-year-old male with phlegmon carbuncle of the sternal notch and neck. Afebrile hemodynamic stable labs noted. Patient is fairly uncooperative with care plan. He refuses letting anyone touch the wounds and only squeezes himself to drain whenever he can. Patient initially wanted to leave AMA but given his condition was explained in detail his problem and decided to come in for evaluation and care plan. Initially refused antibiotics but now is excepting them. Wound evaluated bedside with patient present after was given pain medication. Wound was washed and identified to be a carbuncle no abscess noted. No fluid collection noted. Currently she has draining from the open wound. Has been present likely for some time now. CT recommended to eval uate further. ICD Codes: L03.90 - Cellulitis, unspecified SNOMED: 555900601 (4) Neck pain ICD Codes: M54.2 - Cervicalgia SNOMED: 70184469 (5) Homeless ICD Codes: Z59.0 - Homelessness SNOMED: 91916797 (6) Drug abuse ICD Codes: F19.10 - Other psychoactive substance abuse, uncomplicated SNOMED: 59600072 (7) Abscess ICD Codes: L02.91 - Cutaneous abscess, unspecified SNOMED: 666260578 (8) Bacteremia ICD Codes: R78.81 - Bacteremia SNOMED: 1842459 Arvind Pedro Aug 23, 2020 16:58
--- NOTE | 2020-08-23 19:06 | NUR ---
NURSE HAND-OFF: Important Events on Shift:[Continued Abx] Patient Status: [stable] Diet: [reg] Pending Orders: [] Pending Results/Labs:[] Pending MD notification:[] Latest Vital Signs: Temperature 97.8 , Pulse 88 , B/P 128 /75 , Respiratory Rate 18 , O2 SAT 96 , Room Air, O2 Flow Rate . Vital Sign Comment: [] Latest Merrill Fall Score: 35 Fall Risk: Medium Risk Safety Measures: Call light Within Reach, Bed Alarm Zone 1, Side Rails Side Rails x2, Bed position Low and Locked. Fall Precautions: Yellow Socks Report given to [Deejay RN ].
--- NOTE | 2020-08-23 20:00 | NUR ---
NURSE NOTES: received patient awake, alert, verbal, resting in bed, comfortable.
[2020-08-23] MEDS: Morphine Sulfate 2mg/ml Inj(IV/IM USE ONLY) IVP PRN (20:05)
[2020-08-23 20:37] VITALS: BP 117/76
[2020-08-24] MEDS: Morphine Sulfate 2mg/ml Inj(IV/IM USE ONLY) IVP PRN ×4 (02:34→21:21)
[2020-08-24] MEDS: Zosyn 3.375gm q8h **Extended infusion IVPB SCH ×4 (03:58→14:51)
--- NOTE | 2020-08-24 07:17 | NUR ---
HAND-OFF: Report given to Bonifacio Weber RN.
--- NOTE | 2020-08-24 07:20 | NUR ---
NURSE NOTES: Handoff received from Karina SIMON. Patient is asleep, no signs of acuite distress noted. Breathing is even and unlabored on roomair. Neck dressing is clean and dry. IV is intact and running IVF as ordered. Bed is low and locked, side rails up x2, call light is within reach.
--- NOTE | 2020-08-24 08:23 | Pulmonology Progress Note ---
Subjective Allergies: Coded Allergies: No Known Allergies (Unverified , 06/23/20) Subjective no fevers leukocytosis resolved c/o neck pain no SOB NO CP Objective Last 24 Hour Vital Signs Date Time Temp Pulse Resp B/P (MAP) Pulse Ox O2 Delivery O2 Flow Rate FiO2 08/24/20 03:04 98.1 08/23/20 21:23 Room Air 08/23/20 20:37 98.1 94 18 117/76 (90) 97 08/23/20 20:36 97.8 08/23/20 16:00 97.8 88 18 128/75 (92) 96 08/23/20 12:00 96.8 88 18 130/75 (93) 96 08/23/20 09:00 Room Air l Intake and Output 08/23/20 08/24/20 19:00 07:00 Intake Total 1470.0 ml 692.5 ml Output Total 200 ml Balance 1470.0 ml 492.5 ml Intake Oral 960 ml IV Total 510.0 ml 692.5 ml Output Urine Total 200 ml # Voids 2 2 Objective General Appearance: WD/WN, no apparent distress Lines, tubes and drains: peripheral HEENT: normocephalic, atraumatic, anicteric, mucous membranes moist Neck: normal alignment, supple Respiratory/Chest: lungs clear, no respiratory distress, respiratory distress Cardiovascular/Chest: normal peripheral pulses, normal rate Extremities: normal range of motion, non-tender Skin Exam: - Multiple indurated abscess anterior to trachea, R chest. Non fluctuant. No overlying crepitus. No subcutaneous emphysema. Neurologic: oracle forms developer II-XII grossly normal, no motor/sensory deficits, alert, oriented x 3, responsive Musculoskeletal: normal muscle bulk Microbiology Date/Time Source Procedure Growth Status 08/23/20 12:00 Neck Gram Stain - Final Resulted 08/23/20 12:00 Neck Wound Culture Pending Resulted 08/22/20 00:14 Other Gram Stain - Final Complete 08/22/20 00:14 Wound Culture - Final Staphylococcus Aureus - Mrsa Complete 08/21/20 23:59 Nasopharynx SARS-CoV-2 RdRp Gene Assay - Final Complete Laboratory Tests 08/23/20 09:45: White Blood Count 9.2, Red Blood Count 5.44, Hemoglobin 15.8, Hematocrit 49.0, Mean Corpuscular Volume 90, Mean Corpuscular Hemoglobin 29.0, Mean Corpuscular Hemoglobin Concent 32.1, Red Cell Distribution Width 12.8, Platelet Count 445, Mean Platelet Volume 7.2, Neutrophils (%) (Auto) 60.0, Lymphocytes (%) (Auto) 26.5, Monocytes (%) (Auto) 9.1, Eosinophils (%) (Auto) 2.7, Basophils (%) (Auto) 1.7, Erythrocyte Sedimentation Rate 20H, Sodium Level 136, Potassium Level 4.0, Chloride Level 102, Carbon Dioxide Level 28, Anion Gap 6, Blood Urea Nitrogen 15, Creatinine 0.8, Estimat Glomerular Filtration Rate > 60, Glucose Level 97, Calcium Level 8.9, Total Bilirubin 0.3, Aspartate Amino Transf (AST/SGOT) 29, Alanine Aminotransferase (ALT/SGPT) 101H, Alkaline Phosphatase 130H, C-Reactive Protein, Quantitative 1.1H, Total Protein 7.1, Albumin 2.9L, Globulin 4.2, Albumin/Globulin Ratio 0.7L, HIV (1&2) Antibody Rapid [Pending] Current Medications Medications (Trade) Dose Ordered Sig/Gris Route PRN Reason Start Time Stop Time Status Last Admin Dose Admin Acetaminophen (Tylenol) 650 mg Q4H PRN ORAL Mild Pain (Pain Scale 1-3) 08/22/20 02:00 09/21/20 01:59 08/22/20 02:54 Acetaminophen/ Hydrocodone Bitart ([place] 5/325) 1 tab Q4H PRN ORAL Moderate Pain (Pain Scale 4-6) 08/22/20 10:30 08/29/20 10:29 Heparin Sodium (Porcine) (Heparin 5000 units/ml) 5,000 units EVERY 12 HOURS SUBQ 08/22/20 09:00 10/06/20 08:59 08/23/20 19:47 Iohexol (OMNIPAQUE-300 100ml) 100 ml ONCE PRN INJ for radiology 08/22/20 12:15 08/25/20 23:59 Morphine Sulfate (Morphine Sulfate) 2 mg Q4H PRN IVP SEVERE PAIN (7-10) 08/22/20 10:30 08/29/20 10:29 08/24/20 02:34 Ondansetron HCl (Zofran) 4 mg Q6H PRN IVP Nausea & Vomiting 08/22/20 02:00 09/21/20 01:59 Piperacillin Sod/ Tazobactam Sod 3.375 gm/Sodium Chloride 110 ml @ 27.5 mls/hr EVERY 8 HOURS IVPB 08/22/20 06:00 08/27/20 05:59 08/24/20 03:58 Sodium Chloride 1,000 ml @ 100 mls/hr Q10H IV 08/22/20 03:00 09/21/20 02:59 08/23/20 19:01 Vancomycin HCl 300 ml @ 150 mls/hr Q12H IVPB 08/22/20 11:00 08/27/20 10:59 08/23/20 23:48 Vancomycin HCl ([facility] pharmacy to dose) 1 ea DAILY PRN MISC Per rx protocol 08/22/20 02:00 09/21/20 01:59 Assessment/Plan Assessment/Plan ASSESSMENT Gram negative bacteremia 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
[2020-08-24] MEDS: Heparin 5000 units/ml inj SUBQ SCH ×2 (09:00→21:00)
[2020-08-24] MEDS: Vancomycin 1.5gm/300ml Premix 300 ML IVPB SCH ×2 (11:55→22:40)
--- NOTE | 2020-08-24 11:58 | Surgery Progress Note ---
Surgery Progress Note Subjective Symptoms: improved, pain same, tolerating diet, voiding well, passing flatus, BM Objective Last 24 Hour Vital Signs Date Time Temp Pulse Resp B/P (MAP) Pulse Ox O2 Delivery O2 Flow Rate FiO2 08/24/20 10:02 98.1 08/24/20 09:00 Room Air 08/24/20 03:04 98.1 08/23/20 21:23 Room Air 08/23/20 20:37 98.1 94 18 117/76 (90) 97 08/23/20 20:36 97.8 08/23/20 16:00 97.8 88 18 128/75 (92) 96 08/23/20 12:00 96.8 88 18 130/75 (93) 96 I&O Intake and Output 08/23/20 08/24/20 19:00 07:00 Intake Total 1470.0 ml 692.5 ml Output Total 200 ml Balance 1470.0 ml 492.5 ml Intake Oral 960 ml IV Total 510.0 ml 692.5 ml Output Urine Total 200 ml # Voids 2 2 Dressing: saturated Cardiovascular: RSR Respiratory: decreased breath sounds Abdomen: non-tender, present bowel sounds, non-distended Extremities: no edema, no tenderness, no cyanosis Plan Problems: (1) Sepsis (2) Encounter for medication refill (3) Cellulitis Assessment & Plan: There is a raised area of thickening of the subcutaneous fat in the anterior neck near the base of the neck. This measures approximately 4.5 cm transverse by 1.2 cm AP by 4 cm craniocaudad. Similar finding was demonstrated previously. It appears larger on the current exam, but the apparent size may be affected by differences in positioning, as on the prior study the patient's neck was extended and on the current exam it is flexed. The attenuation is uniform, soft tissue attenuation. There is thickening of the surrounding skin, which appears to be greater than on the p revious study, as well as some infiltration of the subcutaneous fat extending away from the lesion. There appears to be a small superficial ulceration. The adenoids are mildly prominent. The right lateral tonsillar pillars contain calcifications and are somewhat prominent. Otherwise unremarkable nasopharynx and hypopharynx and oropharynx. The larynx is unremarkable. The thyroid is unremarkable. No cervical mass or adenopathy. The bilateral parapharyngeal spaces are clear and symmetric. The salivary glands are unremarkable. The included lung apices demonstrate small bullous changes on the right. The included upper mediastinum is un remarkable. The optic globes are intact. The mastoids are clear. The bones are intact. Lucencies about the mandibular molars raise concern for apical root abscesses. There is also evidence of dental caries. Impression: Limited exam, due to lack of IV contrast administration Raised area of thickening of the subcutaneous fat in the anterior neck, as described, presumably clinically evident, with suggestion of a small superficial ulcer. Most likely an area of soft tissue cellulitis and ulceration. There is also suggestion of inflammation of soft tissues extending away from this lesion. Although there is no suggestion of abscess on this exam, the presence or absence of an abscess cannot be evaluated adequately in the absence of IV contrast. Sonography may be useful to see if there is underlying fluid collection. Mildly prominent adenoids and tonsils, also previously reported Apical bullous changes within the right lung Evidence of dental and periodontal disease Carbuncle CT identified continue antibiotics and local wound care no acute surgical intervention planned at this time. (4) Neck pain (5) Homeless (6) Drug abuse (7) Abscess (8) Bacteremia Arvind Pedro Aug 24, 2020 11:58
--- NOTE | 2020-08-24 15:48 | Infectious Diseases Prog Note ---
Assessment/Plan Assessment/Plan A 1. Neck wound infection With MRSA 2. Sphingomonas sepsis 3. Homeless P 1. continue iv vancomycin, 2. Change Zosyn to Levaquin Subjective ROS Limited/Unobtainable: No Constitutional: Reports: no symptoms, other - feels better Respiratory: Reports: no symptoms Gastrointestinal/Abdominal: Reports: no symptoms Genitourinary: Reports: no symptoms Allergies: Coded Allergies: No Known Allergies (Unverified , 06/23/20) Objective Last 24 Hour Vital Signs Date Time Temp Pulse Resp B/P (MAP) Pulse Ox O2 Delivery O2 Flow Rate FiO2 08/24/20 10:02 98.1 08/24/20 09:00 Room Air 08/24/20 03:04 98.1 08/23/20 21:23 Room Air 08/23/20 20:37 98.1 94 18 117/76 (90) 97 08/23/20 20:36 97.8 08/23/20 16:00 97.8 88 18 128/75 (92) 96 Height (Feet): 6 Weight (Pounds): 185 General Appearance: no acute distress HEENT: mucous membranes moist, other - no oral lesion Respiratory/Chest: lungs clear Cardiovascular: normal rate Abdomen: soft, non tender Extremities: no edema Skin: ulcers, other - midline neck, upper chest Neurologic/Psychiatric: alert, oriented x 3, responsive Microbiology Date/Time Source Procedure Growth Status 08/23/20 12:00 Neck Gram Stain - Final Resulted 08/23/20 12:00 Neck Wound Culture Pending Resulted 08/22/20 00:14 Other Gram Stain - Final Complete 08/22/20 00:14 Wound Culture - Final Staphylococcus Aureus - Mrsa Complete 08/21/20 23:59 Nasopharynx SARS-CoV-2 RdRp Gene Assay - Final Complete Current Medications Medications (Trade) Dose Ordered Sig/Gris Route PRN Reason Start Time Stop Time Status Last Admin Dose Admin Acetaminophen (Tylenol) 650 mg Q4H PRN ORAL Mild Pain (Pain Scale 1-3) 08/22/20 02:00 09/21/20 01:59 08/22/20 02:54 Acetaminophen/ Hydrocodone Bitart ([place] 5/325) 1 tab Q4H PRN ORAL Moderate Pain (Pain Scale 4-6) 08/22/20 10:30 08/29/20 10:29 Heparin Sodium (Porcine) (Heparin 5000 units/ml) 5,000 units EVERY 12 HOURS SUBQ 08/22/20 09:00 10/06/20 08:59 08/23/20 19:47 Iohexol (OMNIPAQUE-300 100ml) 100 ml ONCE PRN INJ for radiology 08/22/20 12:15 08/25/20 23:59 Morphine Sulfate (Morphine Sulfate) 2 mg Q4H PRN IVP SEVERE PAIN (7-10) 08/22/20 10:30 08/29/20 10:29 08/24/20 15:04 Ondansetron HCl (Zofran) 4 mg Q6H PRN IVP Nausea & Vomiting 08/22/20 02:00 09/21/20 01:59 Piperacillin Sod/ Tazobactam Sod 3.375 gm/Sodium Chloride 110 ml @ 27.5 mls/hr EVERY 8 HOURS IVPB 08/22/20 06:00 08/27/20 05:59 08/24/20 14:51 Sodium Chloride 1,000 ml @ 100 mls/hr Q10H IV 08/22/20 03:00 09/21/20 02:59 08/24/20 14:51 Vancomycin HCl 300 ml @ 150 mls/hr Q12H IVPB 08/22/20 11:00 08/27/20 10:59 08/24/20 11:55 Vancomycin HCl ([facility] pharmacy to dose) 1 ea DAILY PRN MISC Per rx protocol 08/22/20 02:00 09/21/20 01:59 Christiano Javier MD Aug 24, 2020 15:48
[2020-08-24 15:52] VITALS: BP 121/81
[2020-08-24] MEDS: Levofloxacin 750mg tab ORAL SCH (16:00)
--- NOTE | 2020-08-24 18:39 | NUR ---
NURSE HAND-OFF: Important Events on Shift:[dressing change] Patient Status: stable Diet: regular Pending Orders: Pending Results/Labs: Pending MD notification: Latest Vital Signs: Temperature 98.6 , Pulse 88 , B/P 121 /81 , Respiratory Rate 18 , O2 SAT 97 , Room Air, O2 Flow Rate . Vital Sign Comment: stable Latest Merrill Fall Score: 35 Fall Risk: Medium Risk Safety Measures: Call light Within Reach, Bed Alarm Zone 1, Side Rails Side Rails x2, Bed position Low and Locked. Fall Precautions: Yellow Socks Report given to Sarah SIMON.
--- NOTE | 2020-08-24 19:35 | NUR ---
JOSE NOTES: Received report from aurora patel. patient is on bed,awake. on room air, no sob. iv access on the right forearm, with ivf as ordered. per AURORA patel," he refused vitals and medications; dressing changed on the neck". denies any pain or discomfort. reiterated to call and ask for assistance. call light and light button within easy reach. bed locked and in lowest position. will continue plan of care
[2020-08-24 20:00] VITALS: BP 126/76
[2020-08-24 22:11] LABS: BASOPHILS % (AUTO) 1.4 % (0.0-2.0); HEMATOCRIT 47.4 % (42.0-52.0); LYMPHOCYTES % (AUTO) 26.3 % (20.0-45.0); MEAN CORPUSCULAR VOLUME 89 FL (80-99); MONOCYTES % (AUTO) 9.2 % (1.0-10.0); NEUTROPHILS % (AUTO) 60.2 % (45.0-75.0); PLATELET COUNT 439 K/UL (150-450); RED CELL DISTRIBUTION WIDTH 12.9 % (11.6-14.8); WHITE BLOOD COUNT 9.4 K/UL (4.8-10.8)
--- NOTE | 2020-08-24 22:32 | NUR ---
NURSE NOTES: Called pipeline for the vanco trough result. per cady [facility], to continue the same dose. charge nurse made aware.
[2020-08-24 22:34] LABS: ALANINE AMINOTRANSFERASE 82 U/L (12-78); ALBUMIN 3.2 G/DL (3.4-5.0); ALBUMIN/GLOBULIN RATIO 0.9 (1.0-2.7); ALKALINE PHOSPHATASE 128 U/L (46-116); ANION GAP 4 mmol/L (5-15); ASPARTATE AMINO TRANSFERASE 22 U/L (15-37); BILIRUBIN,TOTAL 0.2 MG/DL (0.2-1.0); BLOOD UREA NITROGEN 20 mg/dL (7-18); CALCIUM 8.9 MG/DL (8.5-10.1); CARBON DIOXIDE 30 MMOL/L (21-32); CHLORIDE 102 MMOL/L (98-107); CREATININE 0.9 MG/DL (0.55-1.30); POTASSIUM 4.8 MMOL/L (3.5-5.1); SODIUM 136 MMOL/L (136-145)
[2020-08-25] MEDS: Morphine Sulfate 2mg/ml Inj(IV/IM USE ONLY) IVP PRN ×3 (01:28→09:52)
[2020-08-25 04:00] VITALS: BP 121/73
[2020-08-25] MEDS: Vancomycin 1.5gm/300ml Premix 300 ML IVPB SCH (06:25)
--- NOTE | 2020-08-25 06:27 | NUR ---
NURSE HAND-OFF: Important Events on Shift: pain mngt, Patient Status: stable Diet: regular Pending Orders: Pending Results/Labs: Pending MD notification: Latest Vital Signs: Temperature 97.4 , Pulse 80 , B/P 121 /73 , Respiratory Rate 19 , O2 SAT 97 , Room Air, O2 Flow Rate . Vital Sign Comment: Latest Merrill Fall Score: 35 Fall Risk: Medium Risk Safety Measures: Call light Within Reach, Bed Alarm Zone 1, Side Rails Side Rails x2, Bed position Low and Locked. Fall Precautions: Yellow Socks Addendum: 08/25/20 at 0726 by Ciara Guardado RN HAND-OFF: Report given to mayra schilling.
--- NOTE | 2020-08-25 07:30 | NUR ---
NURSE NOTES: Report received from AURORA Smith. Pt awake, alert and oriented x 4, no SOB, bed in lowest position with break engaged and alarm on, denies any pain at the moment, IV line present, on room air, will continue to monitor and proceed with plan of care, call light within reach.
--- NOTE | 2020-08-25 08:38 | Pulmonology Progress Note ---
Subjective Allergies: Coded Allergies: No Known Allergies (Unverified , 06/23/20) Subjective no fevers leukocytosis resolved no SOB No CP Objective Last 24 Hour Vital Signs Date Time Temp Pulse Resp B/P (MAP) Pulse Ox O2 Delivery O2 Flow Rate FiO2 08/25/20 06:15 97.4 08/25/20 04:00 97.4 80 19 121/73 (89) 97 08/25/20 01:58 98.6 08/24/20 21:51 98.6 08/24/20 21:00 Room Air 08/24/20 20:00 97.8 83 19 126/76 (93) 98 08/24/20 18:47 98.6 08/24/20 15:52 98.6 88 18 121/81 (94) 97 08/24/20 15:34 98.1 08/24/20 10:02 98.1 08/24/20 09:00 Room Air Intake and Output 08/24/20 08/25/20 19:00 07:00 Intake Total 750 ml 1400 ml Output Total 900 ml Balance -150 ml 1400 ml Intake Oral 750 ml 750 ml IV Total 650 ml Output Urine Total 900 ml # Voids 3 5 Objective General Appearance: WD/WN, no apparent distress Lines, tubes and drains: peripheral HEENT: normocephalic, atraumatic, anicteric, mucous membranes moist Neck: normal alignment, supple Respiratory/Chest: lungs clear, no respiratory distress, respiratory distress Cardiovascular/Chest: normal peripheral pulses, normal rate Extremities: normal range of motion, non-tender Skin Exam: - Multiple indurated abscess anterior to trachea, R chest. Non fluctuant. No overlying crepitus. No subcutaneous emphysema. 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, no motor/sensory deficits, alert, oriented x 3, responsive Musculoskeletal: normal muscle bulk Microbiology Date/Time Source Procedure Growth Status 08/23/20 12:00 Neck Gram Stain - Final Resulted 08/23/20 12:00 Wound Culture - Preliminary Staphylococcus Aureus Resulted Laboratory Tests 08/24/20 21:50: White Blood Count 9.4, Red Blood Count 5.30, Hemoglobin 16.0, Hematocrit 47.4, Mean Corpuscular Volume 89, Mean Corpuscular Hemoglobin 30.2, Mean Corpuscular Hemoglobin Concent 33.8, Red Cell Distribution Width 12.9, Platelet Count 439, Mean Platelet Volume 7.2, Neutrophils (%) (Auto) 60.2, Lymphocytes (%) (Auto) 26.3, Monocytes (%) (Auto) 9.2, Eosinophils (%) (Auto) 3.0, Basophils (%) (Auto) 1.4, Sodium Level 136, Potassium Level 4.8, Chloride Level 102, Carbon Dioxide Level 30, Anion Gap 4L, Blood Urea Nitrogen 20H, Creatinine 0.9, Estimat Glomerular Filtration Rate > 60, Glucose Level 97, Calcium Level 8.9, Total Bilirubin 0.2, Aspartate Amino Transf (AST/SGOT) 22, Alanine Aminotransferase (ALT/SGPT) 82H, Alkaline Phosphatase 128H, Total Protein 6.9, Albumin 3.2L, Ju bulin 3.7, Albumin/Globulin Ratio 0.9L, Vancomycin Level Trough 8.3 Current Medications Medications (Trade) Dose Ordered Sig/Gris Route PRN Reason Start Time Stop Time Status Last Admin Dose Admin Acetaminophen (Tylenol) 650 mg Q4H PRN ORAL Mild Pain (Pain Scale 1-3) 08/22/20 02:00 09/21/20 01:59 08/22/20 02:54 Acetaminophen/ Hydrocodone Bitart (Hamel 5/325) 1 tab Q4H PRN ORAL Moderate Pain (Pain Scale 4-6) 08/22/20 10:30 08/29/20 10:29 08/24/20 18:18 Heparin Sodium (Porcine) (Heparin 5000 units/ml) 5,000 units EVERY 12 HOURS SUBQ 08/22/20 09:00 10/06/20 08:59 08/23/20 19:47 Iohexol (OMNIPAQUE-300 100ml) 100 ml ONCE PRN INJ for radiology 08/22/20 12:15 08/25/20 23:59 Levofloxacin (Levaquin) 750 mg DAILY ORAL 08/24/20 16:00 08/31/20 15:59 08/24/20 16:00 Morphine Sulfate (Morphine Sulfate) 2 mg Q4H PRN IVP SEVERE PAIN (7-10) 08/22/20 10:30 08/29/20 10:29 08/25/20 05:45 Nicotine (Nicoderm) 1 patch Q24H TDERMAL 08/24/20 18:00 11/22/20 17:59 08/24/20 18:17 Ondansetron HCl (Zofran) 4 mg Q6H PRN IVP Nausea & Vomiting 08/22/20 02:00 09/21/20 01:59 Sodium Chloride 1,000 ml @ 100 mls/hr Q10H IV 08/22/20 03:00 09/21/20 02:59 08/25/20 00:15 Vancomycin HCl 300 ml @ 150 mls/hr Q8H IVPB 08/24/20 23:00 08/29/20 22:59 08/25/20 06:25 Vancomycin HCl (Vanco pharmacy to dose) 1 ea DAILY PRN MISC Per rx protocol 08/22/20 02:00 09/21/20 01:59 Assessment/Plan Assessment/Plan ASSESSMENT 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 care home dc plan on oral abx if OK with ID and surgery - on levaquin - duration to be determined by ID recs case discussed and evaluated by supervising physician Cherelle Stubbs NP Aug 25, 2020 08:38
[2020-08-25] MEDS: Heparin 5000 units/ml inj SUBQ SCH (09:00)
[2020-08-25] MEDS: Levofloxacin 750mg tab ORAL SCH (09:52)
--- NOTE | 2020-08-25 13:52 | Surgery Progress Note ---
Surgery Progress Note Subjective Symptoms: improved, tolerating diet, voiding well, passing flatus, BM, pain decreased Objective Last 24 Hour Vital Signs Date Time Temp Pulse Resp B/P (MAP) Pulse Ox O2 Delivery O2 Flow Rate FiO2 08/25/20 10:22 97.4 08/25/20 09:00 Room Air 08/25/20 06:15 97.4 08/25/20 04:00 97.4 80 19 121/73 (89) 97 08/25/20 01:58 98.6 08/24/20 21:51 98.6 08/24/20 21:00 Room Air 08/24/20 20:00 97.8 83 19 126/76 (93) 98 08/24/20 18:47 98.6 08/24/20 15:52 98.6 88 18 121/81 (94) 97 08/24/20 15:34 98.1 I&O Intake and Output 08/24/20 08/25/20 19:00 07:00 Intake Total 750 ml 1400 ml Output Total 900 ml Balance -150 ml 1400 ml Intake Oral 750 ml 750 ml IV Total 650 ml Output Urine Total 900 ml # Voids 3 5 Dressing: saturated Wound: other Cardiovascular: RSR Respiratory: clear Abdomen: soft, flat, non-tender, present bowel sounds Extremities: no edema, no tenderness, no cyanosis Laboratory Tests Test 08/24/20 21:50 White Blood Count 9.4 K/UL (4.8-10.8) Red Blood Count 5.30 M/UL (4.70-6.10) Hemoglobin 16.0 G/DL (14.2-18.0) Hematocrit 47.4 % (42.0-52.0) Mean Corpuscular Volume 89 FL (80-99) Mean Corpuscular Hemoglobin 30.2 PG (27.0-31.0) Mean Corpuscular Hemoglobin Concent 33.8 G/DL (32.0-36.0) Red Cell Distribution Width 12.9 % (11.6-14.8) Platelet Count 439 K/UL (150-450) Mean Platelet Volume 7.2 FL (6.5-10.1) Neutrophils (%) (Auto) 60.2 % (45.0-75.0) Lymphocytes (%) (Auto) 26.3 % (20.0-45.0) Monocytes (%) (Auto) 9.2 % (1.0-10.0) Eosinophils (%) (Auto) 3.0 % (0.0-3.0) Basophils (%) (Auto) 1.4 % (0.0-2.0) Sodium Level 136 MMOL/L (136-145) Potassium Level 4.8 MMOL/L (3.5-5.1) Chloride Level 102 MMOL/L (98-107) Carbon Dioxide Level 30 MMOL/L (21-32) Anion Gap 4 mmol/L (5-15) L Blood Urea Nitrogen 20 mg/dL (7-18) H Creatinine 0.9 MG/DL (0.55-1.30) Estimat Glomerular Filtration Rate > 60 mL/min (>60) Glucose Level 97 MG/DL (74-106) Calcium Level 8.9 MG/DL (8.5-10.1) Total Bilirubin 0.2 MG/DL (0.2-1.0) Aspartate Amino Transf (AST/SGOT) 22 U/L (15-37) Alanine Aminotransferase (ALT/SGPT) 82 U/L (12-78) H Alkaline Phosphatase 128 U/L (46-116) H Total Protein 6.9 G/DL (6.4-8.2) Albumin 3.2 G/DL (3.4-5.0) L Globulin 3.7 g/dL Albumin/Globulin Ratio 0.9 (1.0-2.7) L Vancomycin Level Trough 8.3 ug/mL (5.0-12.0) Plan Problems: (1) Sepsis (2) Encounter for medication refill (3) Cellulitis Assessment & Plan: There is a raised area of thickening of the subcutaneous fat in the anterior neck near the base of the neck. This measures approximately 4.5 cm transverse by 1.2 cm AP by 4 cm craniocaudad. Similar finding was demonstrated previously. It appears larger on the current exam, but the apparent size may be affected by differences in positioning, as on the prior study the patient's neck was extended and on the current exam it is flexed. The attenuation is uniform, soft tissue attenuation. There is thickening of the surrounding skin, which appears to be greater than on the previous study, as well as some infiltration of the subcutaneous fat extending away from the lesion. There appears to be a small superficial ulceration. The adenoids are mildly prominent. The right lateral tonsillar pillars contain calcifications and are somewhat prominent. Otherwise unremarkable nasopharynx and hypopharynx and oropharynx. The larynx is unremarkable. The thyroid is unremarkable. No cervical mass or adenopathy. The bilateral parapharyngeal spaces are clear and symmetric. The salivary glands are unremarkable. The included lung apices demonstrate small bullous changes on the right. The included upper mediastinum is unremarkable. The optic globes are intact. The mastoids are clear. The bones are intact. Lucencies about the mandibular molars raise concern for apical root abscesses. There is also evidence of dental caries. Impression: Limited exam, due to lack of IV contrast administration Raised area of thickening of the subcutaneous fat in the anterior neck, as described, presumably clinically evident, with suggestion of a small superficial ulcer. Most likely an area of soft tissue cellulitis and ulceration. There is also suggestion of inflammation of soft tissues extending away from this lesion. Although there is no suggestion of abscess on this exam, the presence or absence of an abscess cannot be evaluated adequately in the absence of IV contrast. Sonography may be useful to see if there is underlying fluid collection. Mildly prominent adenoids and tonsils, also previously reported Apical bullous changes within the right lung Evidence of dental and periodontal disease Carbuncle CT identified continue antibiotics and local wound care no acute surgical intervention planned at this time. (4) Neck pain (5) Homeless (6) Drug abuse (7) Abscess (8) Bacteremia Arvind Pedro Aug 25, 2020 13:52
--- NOTE | 2020-08-25 14:27 | NUR ---
NURSE NOTES: Patient stated he wanted to be discharged, explained to pt that MD has not put in an official discharge order as of yet and explained the risks of leaving AMA. Pt then got upset and restless and he stated he wanted to leave [facility] and that we would sign AMA. Pt was given all his belongings, IV line and ID band were removed, also given the ATB PO he was admitted with. Patient signed AMA form and left at 1350 in stable condition. Cherelle Stubbs NP aware. No family member listed.
--- NOTE | 2020-08-26 15:04 | Discharge Summary ---
Discharge Summary Discharge Summary _ Date of admission: 08/22/2020 Date of discharge: 08/25/2020 Patient left AGAINST MEDICAL ADVICE History of Present Illness and Brief Hospital Course Mr. Parmar is a 40-year-old male with history of methamphetamine abuse, emphysema, homelessness, and recent history of abscess to his chest and neck a britta who presented to the ED. Of note, he recently presented to the ED for recurrent left neck and anterior chest abscess. Patient was noted to be admitted on June for sepsis secondary to abscess and cellulitis. Patient was previously treated with doxycycline x10 days. However he reported that when he completed his doxycycline, the abscesses got worse. Patient tested negative for COVID-19 via a rapid gene assay. He was admitted for further management and care. A raised area of thickening of the subcutaneous fat in the anterior neck near the base of the neck was identified. Similar finding was demonstrated previously. His CT of neck without contrast demonstrated raised area of thickening of the subcutaneous fat in the anterior neck and an area of soft tissue cellulitis and ulceration. Of note, the wound culture grew MRSA in the past. He was started on empiric IV vancomycin and Zosyn. His neck wound culture grew MRSA again. IV vancomycin was continued and Zosyn was switched to Levaquin. However, on 08/25/2020, patient stated that he wanted to be discharged. Patient was explained the risks of leaving AMA. Patient signed AMA form and left at 1315 in stable condition. Consultants: Surgery Dr. Pedro Infectious disease Dr. Javier Discharge Condition Stable at the time of discharge Final diagnoses Sphingomyelin as bacteremia Recurrent MRSA abscess in a patient with polysubstance abuse History of MRSA Homelessness Cllulitis Sepsis Drug abuse I have been assigned to dictate discharge summary for this account. I was not involved in the patient's management Angel Lin Aug 26, 2020 15:04
== END 2020-08-25 13:58 | disposition left against medical advice (07) | DRG 720 ==
LOC: EMR 23:34 → 4E 08-22 00:46 → EDBEDREQ 08-22 01:04 → 4E 08-22 19:00
DX: A41.89 Other specified sepsis (principal); L02.11 Cutaneous abscess of neck; L02.213 Cutaneous abscess of chest wall; Z59.0 Homelessness; Z86.14 Personal history of Methicillin resistant Staphylococcus aureus infection; F19.10 Other psychoactive substance abuse, uncomplicated; E75.29 Other sphingolipidosis; F17.200 Nicotine dependence, unspecified, uncomplicated; L03.221 Cellulitis of neck
CPT/HCPCS: 36415; 70490; 80048; 80053; 80202; 85025; 85651; 86140; 86703; 87070; 87181; 87205; 96365; 96366; 96368; 99285; U0002